=== PATIENT | male | born 1955 | race Caucasian/White ===

== ENCOUNTER 2018-11-11 02:59 | Inpatient (IN) | payer MEDICARE, OTHER ==
[2018-11-11] VITALS (56 sets, daily range): BP systolic 77–145; BP diastolic 43–100; PULSE 90–139; RESP 18–37; Ht 177.8 cm; Wt 60.5 kg
[~2018-11-11] VITALS: Ht 177.8 cm; Wt 60.5 kg
[2018-11-11] MEDS ORDERED: NORepinephrine 8MG/250 ML (PMX 250 ML ONE (03:30)
[2018-11-11] MEDS ORDERED: SOD CHLORIDE 0.9% 1,000 ML IV ONE ×2 (04:00→16:30)
[2018-11-11] MEDS ORDERED: LEVALBUTEROL (NEB) 0.63 MG/3 ML AMP HHN PRN (04:00)
[2018-11-11] MEDS: NORepinephrine 8MG/250 ML (PMX 250 ML IV SCH ×2 (04:17→12:09)
[2018-11-11] MEDS: INSULIN ASPART [NOVOLOG] 3 ML PEN SC SCH ×3 (05:54→18:00)
[2018-11-11] MEDS: HEPARIN 5,000 UNIT/1 ML VIAL SC SCH ×3 (05:59→20:19)
[2018-11-11] MEDS ORDERED: NA BICARBONATE 8.4% 50 ML SYG IV ONE ×3 (07:00→20:00)
[2018-11-11] MEDS ORDERED: LEVALBUTEROL (NEB) 0.63 MG/3 ML AMP HHN SCH (08:00)
--- NOTE | 2018-11-11 08:02 | HP ---
DATE OF ADMISSION: 11/11/2018 CHIEF COMPLAINT: Cardiac arrest. HISTORY OF PRESENT ILLNESS: This is a 63-year-old male with a past medical history of schizoaffectiv e disorder, history of COPD who was admitted initially to an outside hospital on 10/05/2018 after anaya ng found down. The patient was at a skilled nurse facility and was found unresponsive. He was hypot ensive with systolic pressures in the 60s. The patient was in respiratory failure. He was subsequen tly intubated and presented to an outside hospital where he had a complicated course. The patient wa s noted to have sepsis, urinary tract infection, fungemia. He was also noted to have acute GI bleedi ng which they felt to be secondary to gastroduodenal artery. The patient had 2 embolizations of the artery without improvement, eventually requiring exploratory laparotomy on 10/09/2018 with enterolys is to control duodenal ulcer bleeding and evacuation of hematoma and placement of a duodenostomy tube . The patient unfortunately was also unable to be weaned and was trached and PEG'd and was transferr ed to [facility]. While at [facility], patient was being followed by multiple consultants including GI, general surgery, pulmonary and Infectious Disease. The patient early this morning was noted to be found unresponsive. No pulse. Code blue was called. The patient was given 1 dose of e pinephrine and chest compressions with return of spontaneous circulation. The patient was then trans ferred to the intensive care unit at [facility]. Upon my evaluation of the patient at this time, he is unresponsive. There are no reports of any hemo ptysis, hematemesis or hematochezia. PAST MEDICAL HISTORY: History of schizoaffective disorder, history of COPD. PAST SURGICAL HISTORY: Status post exploratory laparotomy, status post tracheostomy, status post PEG , status post arterial embolization. FAMILY HISTORY: No family history of kidney disease. SOCIAL HISTORY: Lives previously in a fpc facility. REVIEW OF SYSTEMS: Unable to do adequate review of systems as the patient is altered. Pertinent pos itives stated in HPI, as obtained by reviewing medical records, speaking with the hospital staff, oth erwise negative. PHYSICAL EXAMINATION: VITAL SIGNS: Blood pressure 96/65, respirations 25, pulse 98, temperature 98.6. HEENT: Head is normocephalic. NECK: Shows trach. HEART: Regular rate. LUNGS: Show diminished breath sounds at the base. ABDOMEN: Soft. Positive duodenostomy tube noted. Positive mid abdominal wound noted. Positive CONRAD drain. EXTREMITIES: Negative for clubbing, cyanosis, no edema. DERMATOLOGIC: No rashes. MUSCULOSKELETAL: wounds. NEUROLOGIC: Limited exam as the patient is obtunded. MEDICATIONS: The patient's medications have been reviewed. LABORATORY DATA: Has been reviewed. ASSESSMENT AND PLAN: This is a 63-year-old male who presents with: 1. Status post cardiac arrest. Etiology is unclear, possibly cardiac. The patient is status post r eturn to spontaneous circulation. Plan at this point is to place a cardiology consult for evaluation . Check a 2-D echo, monitor serial troponins. Will monitor closely. 2. Shock, presumed septic, possible cardiac. The patient is currently on pressor support, IV fluids . Broad spectrum antibiotics. Will continue to monitor. Continue current treatment plan. Will al so check blood cultures, procalcitonin level, lactic acid level and monitor closely. 3. Ventilator dependent respiratory failure. Vent settings and ABG have been reviewed. Continue to monitor. Follow up with pulmonary. 4. Nonoliguric acute kidney injury on top of chronic kidney disease. Etiology of MADONNA is secondary t o acute tubular necrosis. The patient's baseline creatinine has been around 3 to 4 mg/dL. Renal function is currently at baseline. Will continue to monitor closely. 6. Metabolic acidosis. Etiology is secondary to acute kidney injury, chronic kidney disease. The p atmita's ABG was reviewed. Patient is status post4 amps of bicarb. Will continue to monitor. Check a lactic acid level. 7. Anemia. Monitor hemoglobin and hematocrit levels. 8. Leukocytosis. Etiology may be secondary to sepsis, recent cardiac arrest as stated above. Will continue broad spectrum antibiotics. Follow up infectious disease. Will check cultures blood, urine and monitor. 9. History of GI bleed from gastroduodenal artery. The patient is status post embolization x2, stat us post exploratory laparotomy with enterolysis to control duodenal ulcer bleed. The patient has a d uodenostomy tube. Will continue to monitor. Follow up with general surgery. 10. Mid incisional wound from recent surgery. Continue wound care. Follow up with general surgery for recommendations. 11. History of sepsis with fungemia, UTI. Will continue broad spectrum antibiotics. The patient is status post course of Diflucan. Monitor closely. 12. Acute encephalopathy on top of history of schizoaffective disorder, etiology may be toxic metabo lic, questionable anoxic injury. Monitor closely. Consider CT scan of the brain. Consider neurolog y evaluation. 13. History of chronic obstructive pulmonary disease. 14. Transaminitis, cholestasis. Etiology may be secondary to shock liver, TPN. Unclear if there is an obstructive phenomenon. The patient's CT scan of the abdomen and pelvis was most recently review ed. Will continue to monitor. Follow up with GI. 15. History of hypertension. 16. GI and deep venous thrombosis prophylaxis. Dictated By: PREM COHEN DO NR/NTS Conf#: [id number] DID#: [id number]
--- NOTE | 2018-11-11 08:06 | CONS ---
Assessment/Plan Assessment/Plan Hospital Course (Demo Recall) 1. Cardiopulmonary arrest: Appears to be most likely respiratory related 2. Shock probably septic 3. History of respiratory failure with tracheostomy vent dependent 4. Renal failure probably acute on chronic 5. Jaundice 6. History of GI bleed 7. Encephalopathy 8. Anemia 9. History of likely COPD 10. History of fungemia 11. Malnutrition and dysphagia 12. Severe metabolic acidosis Recommendation: Continue with supportive care including ventilatory support. Levophed to be continued and titrated as needed I will check the chest x-ray as well I will order an echocardiogram and EKG. Cardiac enzymes will be checked although unable to hold anticoagulants or even give him aspirin given his massive GI bleed Antibiotic management as per internal medicine and most likely ID consultations. GI prophylaxis/treatment as per GI biometrics consultant and internal medicine Continue with ICU care for now. . code statues is full code now Thank you for this referral. We will continue to follow along with you GHAZALA SNYDER MD [facility] Consultation Date/Type/Reason Admit Date/Time Nov 11, 2018 at 03:22 Date of Consultation: Nov 11, 2018 Type of Consult Cardiology Reason for Consultation cpa Requesting Provider: PREM COHEN DO Date/Time of Note DATE: 11/11/18 TIME: 07:56 Hx of Present Illness Interventional cardiology consultation note Chief complaint: Cardiopulmonary arrest Reason for consult: Cardiopulmonary arrest History of present illness: Thank you for this referral. History was obtained from review of the chart review of the ulcer discussion with staff and physicians. Patient himself is unable to provide any history to me. There is no family available This is an unfortunate 63-year-old gentleman multiple complicated medical history was transferred from facility in ICU from [place] last night. The best information I could obtain patient apparently has had a complicated course in lumbar low status post tracheostomy which has been weaning off and our results. Patient last night apparently became more bradycardic unresponsive respiratory failure stop breathing. CODE BLUE was called. Patient already has tracheostomy has been placed on vent has been transferred to ICU. Initially was completely unresponsive now he has some movement. He has been hypotensive as well and currently on Levophed drip. Allergies: No known drug allergies Medications were reviewed as per medical reconciliation sheet Family history: No history of early coronary artery disease Social history: He is an ex-smoker. Past medical history: History of schizoaffective disorder History of massive GI bleed. He was admitted on October 05, 2018 after he was found down and his custodial and hypotensive to [facility] and [facility]. He underwent gas throughout duodenal embolization at that time which was unsuccessful. Duodenal tube was placed as an Michael.. Old record he has had more than 50 unit of PRBC transfused already. Can also renal failure liver enzyme has been elevated since then has been jaundiced. Patient required to have tracheostomy done. Previous echo has shown normal LV systolic function but PA pressure was elevated at 47mmHg. He also has had fungemia infection as well. Review of system: Patient denies all others except for above-mentioned Past Medical History Medications Current Medications Norepinephrine 250 ml @ 1.875 mls/ hr TITRATE IV Last administered on 11/11/18at 04:17; Admin Dose 30 MLS/HR; Start 11/11/18 at 04:00 Cefepime HCl 50 ml @ 100 mls/hr DAILY IVPB ; Start 11/11/18 at 09:00 Famotidine (Pepcid Iv) 20 mg DAILY IV ; Start 11/11/18 at 09:00 Heparin Sodium (Porcine) (Heparin (5000 Units/1ml)) 5,000 unit Q8 SC Last administered on 11/11/18at 05:59; Admin Dose 5,000 UNIT; Start 11/11/18 at 06:00 Insulin Aspart (Novolog Insulin Pen) NOVOLOG *MILD* ALGORI... Q6 SC ; Start 11/11/18 at 06:00 Levalbuterol (Xopenex Neb) 0.63 mg Q6H RESP THERAPY PRN HHN sob; Start 11/11/18 at 04:00 Miconazole Nitrate (Miconazole 2% Cr) 1 applic BID TOP ; Start 11/11/18 at 09:00 Total Parenteral Nutrition 1,000 ml @ 0 mls/hr Q0M IV ; Start 11/11/18 at 03:38 Allergies: Coded Allergies: No Known Allergy (Unverified , 11/03/18) Exam/Review of Systems Vital Signs Vitals Vital Signs Date Temp Pulse Resp B/P (MAP) Pulse Ox O2 O2 Flow FiO2 Time Delivery Rate 11/11/18 98 24 96/65 (75) 100 05:45 11/11/18 30 05:30 11/11/18 Mechanical 05:00 Ventilator 11/11/18 97.2 03:30 Intake and Output 11/10/18 11/10/18 11/11/18 1414:59 22:59 06:59 IntakeIntake Total 227 ml BalanceBalance 227 ml Exam Exam General: Looking team gentleman status post tracheostomy on the vent HEENT: NC/AT. pupils are equal. NECK: Status post tracheostomy. no stridor. CV: RRR. systolic murmur; no gallop or rubs. PULM: no wheezing + rhonchi. GI: Status post surgery with [address]. Extremity: trace B/L LE edema. no clubbing. neuro: Opens his eyes and moves to painful stimuli. Does not able to answer my question though. Psych: calm rectal: deferred : normal male. Per review of the old chart abdominal CT done 11/06/2018 showed: Status post recent midline laparotomy. Postsurgical changes anterior wall body stomach. Question mass proximal body stomach. Feeding gastrostomy tube with tip in duodenum as above. Surgical drain tip in gallbladder fossa. No abscess or hematoma seen. Left renal cyst. Nonvisualization appendix. Bibasilar linear fibrosis versus plate-like atelectasis. Labs Result Diagram: 11/11/18 0414 11/11/18 0415 Results 24hrs Laboratory Tests Test 11/11/18 04:14 11/11/18 04:15 11/11/18 05:10 11/11/18 05:50 White Blood Count 32.0 #H Red Blood Count 2.71 L Hemoglobin 7.8 L Hematocrit 25.1 L Mean Corpuscular 92.6 Volume Mean Corpuscular 28.8 L Hemoglobin Mean Corpuscular 31.1 L Hemoglobin Concen t Red Cell 25.0 H Distribution Width Platelet Count 413 Mean Platelet 10.5 H Volume Immature 3.400 H Granulocytes % Neutrophils % 84.3 H Lymphocytes % 6.2 L Monocytes % 3.4 Eosinophils % 2.4 Basophils % 0.3 Nucleated Red 0.2 H Blood Cells % Immature 1.100 H Granulocytes # Neutrophils # 26.9 H Lymphocytes # 2.0 Monocytes # 1.1 H Eosinophils # 0.8 H Basophils # 0.1 Nucleated Red 0.1 H Blood Cells # Activated 45.3 H Partial Thrombopl ast Time Lactic Acid Level 2.0 Sodium Level 144 Potassium Level 4.3 Chloride Level 120 H Carbon Dioxide 14 L Level Anion Gap 10 Blood Urea 108 H Nitrogen Creatinine 3.68 H Est Glomerular 17 L Filtrat Rate mL/min Glucose Level 116 Calcium Level 10.6 H Phosphorus Level 5.5 H Magnesium Level 1.6 L Total Bilirubin 6.3 H Direct Bilirubin 5.20 H Indirect 1.1 Bilirubin Aspartate Amino 258 #H Transf (AST/SGOT) Alanine 197 H Aminotransferase (ALT/SGPT) Alkaline 216 H Phosphatase Total Protein 7.1 # Albumin 2.4 L Globulin 4.70 H Albumin/Globulin 0.51 Ratio Prealbumin 13.7 L Triglycerides 275 H Level Blood Gas Blood arterial Specimen Source Arterial Blood 11/11/2018 4:50:0 Date Drawn 0 AM Arterial Blood pH 7.268 *L (Temp corrected) Arterial Blood 30.7 L pCO2 (Temp correct) Arterial Blood 116.9 H pO2 (Temp corrected) Arterial Blood 13.7 L HCO3 Arterial Blood -12.1 L Base Excess Arterial Blood 98.0 Oxygen Saturation Chong Test ACCEPTAB Arterial Blood Left Radial Gas Puncture Site Arterial 0.3 Blood Carboxyhemo globin Arterial Blood 0.4 Methemoglobin Blood Gas A-a O2 60.9 H Differential Oxyhemoglobin 97.3 Percent Blood Gas 37.0 Temperature Blood Gas 20.0 Respiration Rate Blood Gas Actual 27 Respiration Rate Blood Gas VENT - AC Modality FiO2 30.0 Blood Gas Tidal 500.0 Volume Blood Gas Low 5.0 PEEP Setting Blood Gas H TA RN Critical Value Read Back Blood Gas Misael SRIVASTAVA DIRECTOR [employer]+ Notified Whom Blood Gas 11/11/2018 5:01:0 Notified Time 0 AM Bedside Glucose 129 Medications Medications Current Medications Norepinephrine 250 ml @ 1.875 mls/ hr TITRATE IV Last administered on 11/11/18at 04:17; Admin Dose 30 MLS/HR; Start 11/11/18 at 04:00 Cefepime HCl 50 ml @ 100 mls/hr DAILY IVPB ; Start 11/11/18 at 09:00 Famotidine (Pepcid Iv) 20 mg DAILY IV ; Start 11/11/18 at 09:00 Heparin Sodium (Porcine) (Heparin (5000 Units/1ml)) 5,000 unit Q8 SC Last administered on 11/11/18at 05:59; Admin Dose 5,000 UNIT; Start 11/11/18 at 06:00 Insulin Aspart (Novolog Insulin Pen) NOVOLOG *MILD* ALGORI... Q6 SC ; Start 11/11/18 at 06:00 Levalbuterol (Xopenex Neb) 0.63 mg Q6H RESP THERAPY PRN HHN sob; Start 11/11/18 at 04:00 Miconazole Nitrate (Miconazole 2% Cr) 1 applic BID TOP ; Start 11/11/18 at 09:00 Total Parenteral Nutrition 1,000 ml @ 0 mls/hr Q0M IV ; Start 11/11/18 at 03:38 GHAZALA SNYDER MD Nov 11, 2018 08:06
--- NOTE | 2018-11-11 08:55 | CONS ---
Assessment/Plan Assessment/Plan Assessment/Plan (Daily) Ventilator setting; assist control of 20, tidal volume 500, PEEP of 5, 30% FiO2. Patient is currently on Levophed 40 mics per minute. Chest x-ray is clear. Assessment and recommendations; 1. Patient admitted with respiratory failure status post CPR with severe sepsis. Possible sources could be early pneumonia versus abdominal infection. Patient exhibiting significant leukocytosis. 2. Possibly chronic renal insufficiency. 3. Metabolic acidosis likely related to cardiac arrest event 4. COPD. 5. History of schizoaffective disorder. 6. Elevated liver enzymes, possibly related to ongoing sepsis. 7. Anemia. 8. Likely underlying advanced dementia/encephalopathy. Continue current supportive care. Add vancomycin per pharmacy. Sodium bicarbonate replaced. Consider adding Cancidas. Continue TPN. Prognosis appears guarded. 35 minutes of critical care time was spent evaluating patient. Consultation Date/Type/Reason Admit Date/Time Nov 11, 2018 at 03:22 Date of Consultation: Nov 11, 2018 Type of Consult Pulmonary/critical care Patient is a 63-year-old male who was transferred to the hospital after he underwent cardiac arrest at [facility]. CPR was done with revival of vital signs. Patient apparently was maintained on T-piece but now is on invasive mechanical ventilation. By the time I saw him, patient is completely unresponsive and on ventilator. History is been obtained from medical records. Past medical history; 1. History of massive GI bleed status post 2 embolization procedures. 2. History of tracheostomy and PEG tube placement. 3. History of laparotomy with abdominal wound dehiscence. 4. Chronic renal insufficiency. 5. Chronic anemia. 6. COPD. 7. Schizoaffective disorder. Medications; reviewed. Patient is currently on Levophed 14 mics per minute. Other medications were reviewed as well. Allergies; none. Family history, social history, occupational history is unavailable. Review of system; unable to be obtained. General exam; elderly male, appears quite emaciated. On ventilator via tracheostomy. Noncommunicative. But awake. Currently in no distress. Date/Time of Note DATE: 11/11/18 TIME: 08:47 Past Medical History Medications Current Medications Norepinephrine 250 ml @ 1.875 mls/ hr TITRATE IV Last administered on 11/11/18at 04:17; Admin Dose 30 MLS/HR; Start 11/11/18 at 04:00 Cefepime HCl 50 ml @ 100 mls/hr DAILY IVPB ; Start 11/11/18 at 09:00 Famotidine (Pepcid Iv) 20 mg DAILY IV ; Start 11/11/18 at 09:00 Heparin Sodium (Porcine) (Heparin (5000 Units/1ml)) 5,000 unit Q8 SC Last administered on 11/11/18at 05:59; Admin Dose 5,000 UNIT; Start 11/11/18 at 06:00 Insulin Aspart (Novolog Insulin Pen) NOVOLOG *MILD* ALGORI... Q6 SC ; Start 11/11/18 at 06:00 Levalbuterol (Xopenex Neb) 0.63 mg Q6H RESP THERAPY PRN HHN sob; Start 11/11/18 at 04:00 Miconazole Nitrate (Miconazole 2% Cr) 1 applic BID TOP ; Start 11/11/18 at 09:00 Total Parenteral Nutrition 1,000 ml @ 0 mls/hr Q0M IV ; Start 11/11/18 at 03:38 Levalbuterol (Xopenex Hfa) 4 puff Q6H RESP THERAPY INH ; Start 11/11/18 at 09:00 Allergies: Coded Allergies: No Known Allergy (Unverified , 11/03/18) Exam/Review of Systems Exam Vitals Vital Signs Date Temp Pulse Resp B/P (MAP) Pulse Ox O2 O2 Flow FiO2 Time Delivery Rate 11/11/18 98 24 96/65 (75) 100 05:45 11/11/18 30 05:30 11/11/18 Mechanical 05:00 Ventilator 11/11/18 97.2 03:30 Intake and Output 11/10/18 11/10/18 11/11/18 1515:00 23:00 07:00 IntakeIntake Total 227 ml BalanceBalance 227 ml Exam H ENT exam; supple neck, no JVD. No lymphadenopathy. Midline trachea. No thyromegaly. Patient is edentulous. Tracheostomy in place. Insertion site is clean. Chest exam; diminished breath sounds bilaterally. S1-S2 audible, no murmurs. Regular rhythm. Abdomen exam; soft, scaphoid. Midline dressing in place. Midline abdominal wound is open. G-tube in place. Abdominal drain in place as well. Bowel sounds are absent. Extremity exam; no peripheral edema. FLOOR ATTENDANT exam; patient is unresponsive. Results Result Diagram: 11/11/18 0414 11/11/18 0415 Results 24hrs Laboratory Tests Test 11/11/18 04:14 11/11/18 04:15 11/11/18 05:10 11/11/18 05:50 White Blood Count 32.0 #H Red Blood Count 2.71 L Hemoglobin 7.8 L Hematocrit 25.1 L Mean Corpuscular 92.6 Volume Mean Corpuscular 28.8 L Hemoglobin Mean Corpuscular 31.1 L Hemoglobin Concen t Red Cell 25.0 H Distribution Width Platelet Count 413 Mean Platelet 10.5 H Volume Immature 3.400 H Granulocytes % Neutrophils % 84.3 H Lymphocytes % 6.2 L Monocytes % 3.4 Eosinophils % 2.4 Basophils % 0.3 Nucleated Red 0.2 H Blood Cells % Immature 1.100 H Granulocytes # Neutrophils # 26.9 H Lymphocytes # 2.0 Monocytes # 1.1 H Eosinophils # 0.8 H Basophils # 0.1 Nucleated Red 0.1 H Blood Cells # Activated 45.3 H Partial Thrombopl ast Time Lactic Acid Level 2.0 Sodium Level 144 Potassium Level 4.3 Chloride Level 120 H Carbon Dioxide 14 L Level Anion Gap 10 Blood Urea 108 H Nitrogen Creatinine 3.68 H Est Glomerular 17 L Filtrat Rate mL/min Glucose Level 116 Calcium Level 10.6 H Phosphorus Level 5.5 H Magnesium Level 1.6 L Total Bilirubin 6.3 H Direct Bilirubin 5.20 H Indirect 1.1 Bilirubin Aspartate Amino 258 #H Transf (AST/SGOT) Alanine 197 H Aminotransferase (ALT/SGPT) Alkaline 216 H Phosphatase Total Protein 7.1 # Albumin 2.4 L Globulin 4.70 H Albumin/Globulin 0.51 Ratio Prealbumin 13.7 L Triglycerides 275 H Level Blood Gas Blood arterial Specimen Source Arterial Blood 11/11/2018 4:50:0 Date Drawn 0 AM Arterial Blood pH 7.268 *L (Temp corrected) Arterial Blood 30.7 L pCO2 (Temp correct) Arterial Blood 116.9 H pO2 (Temp corrected) Arterial Blood 13.7 L HCO3 Arterial Blood -12.1 L Base Excess Arterial Blood 98.0 Oxygen Saturation Chong Test ACCEPTAB Arterial Blood Left Radial Gas Puncture Site Arterial 0.3 Blood Carboxyhemo globin Arterial Blood 0.4 Methemoglobin Blood Gas A-a O2 60.9 H Differential Oxyhemoglobin 97.3 Percent Blood Gas 37.0 Temperature Blood Gas 20.0 Respiration Rate Blood Gas Actual 27 Respiration Rate Blood Gas VENT - AC Modality FiO2 30.0 Blood Gas Tidal 500.0 Volume Blood Gas Low 5.0 PEEP Setting Blood Gas H TA RN Critical Value Read Back Blood Gas D ATIF SIGNAL SUPERVISOR+ Notified Whom Blood Gas 11/11/2018 5:01:0 Notified Time 0 AM Bedside Glucose 129 Test 11/11/18 07:15 Lactic Acid Level 1.5 Medications Medication Current Medications Norepinephrine 250 ml @ 1.875 mls/ hr TITRATE IV Last administered on 11/11/18at 04:17; Admin Dose 30 MLS/HR; Start 11/11/18 at 04:00 Cefepime HCl 50 ml @ 100 mls/hr DAILY IVPB ; Start 11/11/18 at 09:00 Famotidine (Pepcid Iv) 20 mg DAILY IV ; Start 11/11/18 at 09:00 Heparin Sodium (Porcine) (Heparin (5000 Units/1ml)) 5,000 unit Q8 SC Last administered on 11/11/18at 05:59; Admin Dose 5,000 UNIT; Start 11/11/18 at 06:00 Insulin Aspart (Novolog Insulin Pen) NOVOLOG *MILD* ALGORI... Q6 SC ; Start 11/11/18 at 06:00 Levalbuterol (Xopenex Neb) 0.63 mg Q6H RESP THERAPY PRN HHN sob; Start 11/11/18 at 04:00 Miconazole Nitrate (Miconazole 2% Cr) 1 applic BID TOP ; Start 11/11/18 at 09:00 Total Parenteral Nutrition 1,000 ml @ 0 mls/hr Q0M IV ; Start 11/11/18 at 03:38 Levalbuterol (Xopenex Hfa) 4 puff Q6H RESP THERAPY INH ; Start 11/11/18 at 09:00 BERENICE AREVALO Nov 11, 2018 08:54
[2018-11-11] MEDS ORDERED: VANCOMYCIN IV PER PHARMACY XX SCH (09:00)
[2018-11-11] MEDS ORDERED: FAMOTIDINE 20 MG INJ IV SCH (09:00)
[2018-11-11] MEDS: LEVALBUTEROL (HFA) 15 GM INHALER INH SCH ×3 (09:00→19:38)
[2018-11-11] MEDS: CEFEPIME 1GM/50 ML (PMX) 50 ML IVPB SCH (09:23)
[2018-11-11] MEDS: MICONAZOLE 2% 30 GM CR TOP SCH ×2 (09:24→20:09)
[2018-11-11] MEDS: BALSAM PERU/CASTOR OIL 60 GM TUBE TOP SCH ×2 (09:24→20:09)
[2018-11-11] MEDS ORDERED: DEXTROSE 50% 50 ML SYRINGE IV PRN ×2 (09:30)
[2018-11-11] MEDS ORDERED: GLUCOSE GEL 15 GRAM TUBE PO PRN ×2 (09:30)
[2018-11-11] MEDS ORDERED: GLUCAGON 1 MG INJ IM PRN (09:30)
[2018-11-11] MEDS ORDERED: GLUCOSE GEL 15 GRAM TUBE BUCCAL PRN (09:30)
--- NOTE | 2018-11-11 09:35 | CONS ---
Assessment/Plan Assessment/Plan Hospital Course (Demo Recall) 63 yo male 1. Abnormal LFTs, multifactorial -sepsis, ischemic liver, cholastasis 2. Acute on chronic anemia -will monitor 3. S/P cardiac arrest 4. VDRF 5. Leukocytosis -sepsis, cardiac arrest 6. H/O GI bleed secondary gastroduodenal ulcer which was emoblized, enterolysis and duodenostomy tube. 7. Acute on chronic kidney disease Plan: Keep SBP greater than 100 [facility] and for active GI bleeding [facility] LFTs PPI BID Continue TPN ICU supportive care Pt examined and plan of care d/w Dr. Thompson Consultation Date/Type/Reason Admit Date/Time Nov 11, 2018 at 03:22 Date/Time of Note DATE: 11/11/18 TIME: 09:10 Hx of Present Illness 63 yo male with pmh of COPD, Schizoaffective disorder followed by Dr Thompson in [facility]. Pt was initially admitted 10/05/18 after being found unresponsive at a SNF was found to in resp failure and hypotensive was intubated. Found to septic with a UTI and fungemia, GI bleed secondary to gastroduodenal artery requiring to embolizations and enterolysis of duodenal a rtery with duodenostomy. Eventually patient was trached and PEGd and transferred to [facility]. While at [facility] pt coded, CPR initiated and ROSC, transferred to ICU at [facility]. Pt has had chronically elevated LFTs and jaundiced. HH 7.8/25.1. WBC 32. Abnormal LFTs. T bili 6.8. Triglycerides 300. On le vophed gtt Past Medical History Medications Current Medications Norepinephrine 250 ml @ 1.875 mls/ hr TITRATE IV Last administered on 11/11/18at 04:17; Admin Dose 30 MLS/HR; Start 11/11/18 at 04:00 Cefepime HCl 50 ml @ 100 mls/hr DAILY IVPB ; Start 11/11/18 at 09:00 Famotidine (Pepcid Iv) 20 mg DAILY IV ; Start 11/11/18 at 09:00 Heparin Sodium (Porcine) (Heparin (5000 Units/1ml)) 5,000 unit Q8 SC Last administered on 11/11/18at 05:59; Admin Dose 5,000 UNIT; Start 11/11/18 at 06:00 Insulin Aspart (Novolog Insulin Pen) NOVOLOG *MILD* ALGORI... Q6 SC ; Start 11/11/18 at 06:00 Levalbuterol (Xopenex Neb) 0.63 mg Q6H RESP THERAPY PRN HHN sob; Start 11/11/18 at 04:00 Miconazole Nitrate (Miconazole 2% Cr) 1 applic BID TOP ; Start 11/11/18 at 09:00 Total Parenteral Nutrition 1,000 ml @ 0 mls/hr Q0M IV ; Start 11/11/18 at 03:38 Levalbuterol (Xopenex Hfa) 4 puff Q6H RESP THERAPY INH ; Start 11/11/18 at 09:00 Vancomycin HCl (Vanco Iv Per Pharmacy) VANCOMYCIN PER PHARMACY PER PROTOCOL XX ; Start 11/11/18 at 09:00; Status UNV Caspofungin 50 mg/ Sodium Chloride 250 ml @ 250 mls/hr Q24H IVPB ; Start 11/11/18 at 09:00; Status UNV Allergies: Coded Allergies: No Known Allergy (Unverified , 11/03/18) Exam/Review of Systems Exam Vitals Vital Signs Date Temp Pulse Resp B/P (MAP) Pulse Ox O2 O2 Flow FiO2 Time Delivery Rate 11/11/18 103 08:00 11/11/18 24 96/65 (75) 100 05:45 11/11/18 30 05:30 11/11/18 Mechanical 05:00 Ventilator 11/11/18 97.2 03:30 Intake and Output 11/10/18 11/10/18 11/11/18 1515:00 23:00 07:00 IntakeIntake Total 227 ml BalanceBalance 227 ml Constitutional: non-verbal Psych: no complaints Head: normocephalic Eyes: PERRL, icteric Respiratory: clear to auscultation Cardiovascular: regular rate and rhythm Gastrointestinal: soft, other (no bowel sounds, open wound mid abdomen packed with drainage gauze, rt tube draing yellow clear output with bloody sediment, Left tube draining purulent drainage with black sediment. ) Neurological: unresponsive, other (eyes open, does not track) Skin: other (jaundice) Results Result Diagram: 11/11/18 0414 11/11/18 0715 Results 24hrs Laboratory Tests Test 11/11/18 04:14 11/11/18 04:15 11/11/18 05:10 11/11/18 05:50 White Blood Count 32.0 #H Red Blood Count 2.71 L Hemoglobin 7.8 L Hematocrit 25.1 L Mean Corpuscular 92.6 Volume Mean Corpuscular 28.8 L Hemoglobin Mean Corpuscular 31.1 L Hemoglobin Concen t Red Cell 25.0 H Distribution Width Platelet Count 413 Mean Platelet 10.5 H Volume Immature 3.400 H Granulocytes % Neutrophils % 84.3 H Lymphocytes % 6.2 L Monocytes % 3.4 Eosinophils % 2.4 Basophils % 0.3 Nucleated Red 0.2 H Blood Cells % Immature 1.100 H Granulocytes # Neutrophils # 26.9 H Lymphocytes # 2.0 Monocytes # 1.1 H Eosinophils # 0.8 H Basophils # 0.1 Nucleated Red 0.1 H Blood Cells # Activated 45.3 H Partial Thrombopl ast Time Lactic Acid Level 2.0 Sodium Level 144 Potassium Level 4.3 Chloride Level 120 H Carbon Dioxide 14 L Level Anion Gap 10 Blood Urea 108 H Nitrogen Creatinine 3.68 H Est Glomerular 17 L Filtrat Rate mL/min Glucose Level 116 Calcium Level 10.6 H Phosphorus Level 5.5 H Magnesium Level 1.6 L Total Bilirubin 6.3 H Direct Bilirubin 5.20 H Indirect 1.1 Bilirubin Aspartate Amino 258 #H Transf (AST/SGOT) Alanine 197 H Aminotransferase (ALT/SGPT) Alkaline 216 H Phosphatase Total Protein 7.1 # Albumin 2.4 L Globulin 4.70 H Albumin/Globulin 0.51 Ratio Prealbumin 13.7 L Triglycerides 275 H Level Blood Gas Blood arterial Specimen Source Arterial Blood 11/11/2018 4:50:0 Date Drawn 0 AM Arterial Blood pH 7.268 *L (Temp corrected) Arterial Blood 30.7 L pCO2 (Temp correct) Arterial Blood 116.9 H pO2 (Temp corrected) Arterial Blood 13.7 L HCO3 Arterial Blood -12.1 L Base Excess Arterial Blood 98.0 Oxygen Saturation Chong Test ACCEPTAB Arterial Blood Left Radial Gas Puncture Site Arterial 0.3 Blood Carboxyhemo globin Arterial Blood 0.4 Methemoglobin Blood Gas A-a O2 60.9 H Differential Oxyhemoglobin 97.3 Percent Blood Gas 37.0 Temperature Blood Gas 20.0 Respiration Rate Blood Gas Actual 27 Respiration Rate Blood Gas VENT - AC Modality FiO2 30.0 Blood Gas Tidal 500.0 Volume Blood Gas Low 5.0 PEEP Setting Blood Gas H TA RN Critical Value Read Back Blood Gas D [employer]+ Notified Whom Blood Gas 11/11/2018 5:01:0 Notified Time 0 AM Bedside Glucose 129 Test 11/11/18 07:15 Sodium Level 143 Potassium Level 4.0 Chloride Level 120 H Carbon Dioxide 11 L Level Anion Gap 12 Blood Urea 109 H Nitrogen Creatinine 3.85 H Est Glomerular 16 L Filtrat Rate mL/min Glucose Level 143 Lactic Acid Level 1.5 Calcium Level 10.8 H Phosphorus Level 5.1 H Magnesium Level 1.6 L Total Bilirubin 6.8 H Direct Bilirubin 5.60 H Indirect 1.2 H Bilirubin Aspartate Amino 329 H Transf (AST/SGOT) Alanine 247 H Aminotransferase (ALT/SGPT) Alkaline 245 H Phosphatase Total Protein 7.0 Albumin 2.3 L Globulin 4.70 H Albumin/Globulin 0.48 Ratio Prealbumin Pending Triglycerides 300 H Level Medications Medication Current Medications Norepinephrine 250 ml @ 1.875 mls/ hr TITRATE IV Last administered on 11/11/18at 04:17; Admin Dose 30 MLS/HR; Start 11/11/18 at 04:00 Cefepime HCl 50 ml @ 100 mls/hr DAILY IVPB ; Start 11/11/18 at 09:00 Famotidine (Pepcid Iv) 20 mg DAILY IV ; Start 11/11/18 at 09:00 Heparin Sodium (Porcine) (Heparin (5000 Units/1ml)) 5,000 unit Q8 SC Last administered on 11/11/18at 05:59; Admin Dose 5,000 UNIT; Start 11/11/18 at 06:00 Insulin Aspart (Novolog Insulin Pen) NOVOLOG *MILD* ALGORI... Q6 SC ; Start 11/11/18 at 06:00 Levalbuterol (Xopenex Neb) 0.63 mg Q6H RESP THERAPY PRN HHN sob; Start 11/11/18 at 04:00 Miconazole Nitrate (Miconazole 2% Cr) 1 applic BID TOP ; Start 11/11/18 at 09:00 Total Parenteral Nutrition 1,000 ml @ 0 mls/hr Q0M IV ; Start 11/11/18 at 03:38 Levalbuterol (Xopenex Hfa) 4 puff Q6H RESP THERAPY INH ; Start 11/11/18 at 09:00 Vancomycin HCl (Vanco Iv Per Pharmacy) VANCOMYCIN PER PHARMACY PER PROTOCOL XX ; Start 11/11/18 at 09:00; Status UNV Caspofungin 50 mg/ Sodium Chloride 250 ml @ 250 mls/hr Q24H IVPB ; Start 11/11/18 at 09:00; Status UNV RYLAND ASH Nov 11, 2018 09:32
[2018-11-11] MEDS: FAMOTIDINE 20 MG INJ IV SCH ×2 (10:00→20:13)
--- NOTE | 2018-11-11 10:02 | RADRPT ---
Echocardiogram Report Patient Name: MAGDIEL GARCIA RPatient ID: [id number] : 1955 (63y 3m)Study Date: 11/11/2018 8:23:46 AM Gender: MAccession #: [id number] Tech: Bashir Puentes ADITYA Location: 105 Ref.Physician: GHAZALA MELGAR Height(Cm): BSA: Weight(Kg): Quality: AdequateOrder Physician: GHAZALA MELGAR Account #: Procedures: Echocardiographic Report: Transthoracic echocardiogram with complete 2D, M-Mode, and doppler examination. Indications: CPA. Measurements: 2D/M Mode Doppler Measurement Value Normal Range Measurement Value Normal Range LVIDd 2D 3.8 [ 4.2 - 5.8 ] cm AV Peak Keenan 1.5 [ 100.0 - 170.0 ] cm/sec LVIDs 2D 1.7 [ 2.5 - 4.0 ] cm AV Peak PG 9.0 [ 2.0 - 9.0 ] mmHg LVPWd 2D 1.1 [ 0.6 - 1.0 ] cm LVOT Peak Keenan 1.3 [ 70.0 - 110.0 ] cm/sec IVSd 2D 1.0 [ 0.6 - 1.0 ] cm LVOT Peak PG 7.0 [ 2.0 - 6.0 ] mmHg AoR Diam 2D 3.3 [ 2.6 - 3.4 ] cm Lat E` Keenan 0.1 [ 10.0 - 15.0 ] cm/sec EDV 2D 60.8 [ 62.0 - 150.0 ] ml ESV 2D 8.0 [ 21.0 - 61.0 ] ml EF 2D 86.8 [ 52.0 - 72.0 ] percent LA Dimen 2D 2.5 [ 3.0 - 4.0 ] cm Findings: Left Ventricle: Normal left ventricular systolic function. Normal left ventricular cavity size. Mild concentric left ventricular hypertrophy. Ejection fraction is visually estimated at 65 %. Abnormal Diastolic Function. Right Ventricle: Normal right ventricular size. Normal right ventricular systolic function. Left Atrium: The left atrium is normal in size. Right Atrium: The right atrium is normal in size. Mitral Valve: Normal appearance and function of the mitral valve with trace physiologic regurgitation. Aortic Valve: Normal appearance of the aortic valve. No significant aortic stenosis or insufficiency. Tricuspid Valve: Normal appearance and function of the tricuspid valve with trace physiologic regurgitation. Normal right ventricular systolic pressure. Pulmonic Valve: Pulmonic valve not well visualized. Pericardium: Normal pericardium with no significant pericardial effusion. Aorta: Normal aortic root. IVC: Inferior vena cava without respiratory collapse, however, patient on ventilator. Conclusions: Normal left ventricular systolic function. Normal left ventricular cavity size. Mild concentric left ventricular hypertrophy. Ejection fraction is visually estimated at 65 %. Abnormal Diastolic Function. Normal appearance and function of the mitral valve with trace physiologic regurgitation. Normal appearance of the aortic valve. No significant aortic stenosis or insufficiency. Normal appearance and function of the tricuspid valve with trace physiologic regurgitation. Normal right ventricular systolic pressure. Inferior vena cava without respiratory collapse, however, patient on ventilator. Electronically Signed By: Ghazala Melgar 2018-11-11 10:02:36 PDT
[2018-11-11] MEDS ORDERED: CASPOFUNGIN 70 MG in NS 250 ML IVPB ONE (10:30)
[2018-11-11] MEDS ORDERED: VANCOMYCIN HCL 1.25 GM in SOD CHLORIDE 0.9% 250 ML IVPB ONE (11:00)
[2018-11-11] MEDS: TPN 1,000 ML IV SCH ×2 (11:31→20:18)
--- NOTE | 2018-11-11 12:22 | CONS ---
DATE OF ADMISSION: 11/11/2018 DATE OF CONSULTATION: 11/11/2018 TYPE OF CONSULTATION: Infectious Disease. REASON FOR CONSULTATION: Antibiotic management. HISTORY OF PRESENT ILLNESS: The patient is a 63-year-old male with numerous problems who was transfe rred from [facility] to the ICU with cardiac arrest. His past problems include: 1. History of schizoaffective disorder. 2. History of chronic obstructive pulmonary disease. He was admitted initially to the hospital 10/05/2018 after being found down. He was at a [facility] facility, was hypotensive, in respiratory failure, he was intubated. He was noted to have sepsi s, urinary tract infection and fungemia at an outside hospital. He also had an acute GI bleed, which they felt was secondary to the gastroduodenal artery. The patient had 2 embolizations of the artery without improvement. He eventually required exploratory laparotomy on 10/09/2018 with enterolysis t o control duodenal ulcer bleeding and evacuation of a hematoma, as well as placement of a duodenostom y tube. The patient eventually was trached and needed a G-tube placed, and was transferred to [facility]. The patient was followed by GI, general surgery, pulmonary and infectious disea se. Early this morning, he was found unresponsive. Code blue was called. He was given a dose of ep inephrine, chest compression with return of spontaneous circulation and transferred to the intensive care unit. PAST MEDICAL HISTORY: As outlined. PAST SURGICAL HISTORY: Status post-exploratory laparotomy, status post tracheostomy, status post G-t ube placement, status post arterial embolization. FAMILY HISTORY: Noncontributory. SOCIAL HISTORY: Lives at a nursing home facility. REVIEW OF SYSTEMS: Noncontributory. PHYSICAL EXAMINATION: GENERAL: The patient has a tracheostomy and a G-tube. VITAL SIGNS: His blood pressure is about 96/65, respirations 25. He is afebrile, pulse 98. SKIN: Without generalized rash. HEENT: Within normal limits. NECK: Tracheostomy. CHEST: Decreased breath sounds at the bases. HEART: Without murmur or gallop. ABDOMEN: Soft. Duodenostomy tube is present. He has a CONRAD drain, a mid-abdominal wound is noted. EXTREMITIES: Without cyanosis, clubbing, or edema. RECTAL AND GENITAL: Deferred. NEUROLOGIC: The patient is obtunded. IMPRESSION AND PLAN: 1. The patient is in shock, possibly septic shock, possible cardiac, has ventilated dependent respir atory failure. He is on caspofungin, vancomycin and cefepime. Chest x-ray shows prominent bilateral interstitial markings which may represent pulmonary vascular congestion or infiltrate. The patient was seen by Dr. Barrera in pulmonary consultation. He has significant leukocytosis, placed on____. Hi s white count is 32,000, H and H 7.8 and 25.1, platelet count 413,000. BUN and creatinine are 109/3. 85. The patient was seen by Dr. Thompson in GI. He currently has abnormal liver function tests as wel l as markedly abnormal elevated white count of 32,000 with 84% neutrophils. We will continue him on vancomycin, cefepime and caspofungin, norepinephrine and observe. I will dictate my findings to Dr. Cohen and to the aforementioned consultants. Dictated By: ANGELA BENNETT MD, JD/ANTHONY Conf#: [id number] DID#: [id number] CC: PREM COHEN DO;*EndCC*
--- NOTE | 2018-11-11 12:36 | CONS ---
Assessment/Plan Assessment/Plan Hospital Course (Demo Recall) 1. Cardiac arrest status post resuscitation, shock -Supportive -Pressor support as needed -IV fluids -Antibiotics -Pancultures -Cardiology consult 2. Recent history of bleeding duodenal ulcer, status post exploratory laparotomy and duodenostomy -Obtain records from outside hospital -Maintain drains -Culture CONRAD drainage -Local wound care 3. Hyperbilirubinemia, transaminitis: 2/2 shock liver versus obstruction versus other -GI follow-up 4. Respiratory failure currently on ventilator, pulmonary vascular congestions or infiltrates -Pulmonary toilet -Vent management -Pulmonary consult 5.MADONNA: -Limit nephrotoxic meds -Renally dose meds -Per renal 6. Hypochromic anemia: -Monitor and transfuse as needed 7. Metabolic acidosis -Supportive 8. Leukocytosis -As above 9. Dysphagia status post duodenostomy tube -Hold enteral feedings -TPN Thank you. Patient seen and examined in collaboration with Dr. Sunny Queen. Consultation Date/Type/Reason Admit Date/Time Nov 11, 2018 at 03:22 Date of Consultation: Nov 11, 2018 Type of Consult Surgical Reason for Consultation Abdominal wounds, drains Requesting Provider: PREM COHEN DO Date/Time of Note DATE: 11/11/18 TIME: 12:01 Hx of Present Illness Filemon Cruz is a 63-year-old man with extensive past medical history who was recently at [facility] for recuperation. He recently had a very complicated course at [facility] where he was managed for GI bleeding as well as sepsis. Reportedly, he was found to have a bleeding duodenal ulcer with attempted IR embolization which was unsuccessful. He was ultimately taken to surgery and appears to have had extensive surgery with a resulting duodenostomy tube placement. His medical course included renal failure, shock, respiratory failure, tracheostomy placement, PEG placement. He was transferred to [facility] for further recuperation. Unfortunately this morning he experienced cardiac arrest and was eventually revived. He is currently in ICU care on ventilator as well as on pressor support. There have been no recent reports of fevers, labored breathing, congested cough, vomiting, diarrhea, seizure, rash prior to event. General surgery was asked to follow. 12 point review of systems was reviewed and is negative except for as stated in HPI Past Medical History Schizoaffective disorder COPD Bleeding duodenal ulcer, possible perforation Sepsis Shock Jaundice Icterus Respiratory failure, status post trach MADONNA Dysphagia status post PEG placement Abdominal wound Electrolyte abnormalities Anemia Transaminitis Hyperbilirubinemia Cholestasis Exploratory laparotomy Duodenal tube placement Medications Current Medications Norepinephrine 250 ml @ 1.875 mls/ hr TITRATE IV Last administered on 9at 04:17; Admin Dose 30 MLS/HR; Start 11/11/18 at 04:00 Cefepime HCl 50 ml @ 100 mls/hr DAILY IVPB Last administered on 11/11/18at 09:23; Admin Dose 100 MLS/HR; Start 11/11/18 at 09:00 Heparin Sodium (Porcine) (Heparin (5000 Units/1ml)) 5,000 unit Q8 SC Last administered on 11/11/18at 05:59; Admin Dose 5,000 UNIT; Start 11/11/18 at 06:00 Insulin Aspart (Novolog Insulin Pen) NOVOLOG *MILD* ALGORI... Q6 SC ; Start 11/11/18 at 06:00 Levalbuterol (Xopenex Neb) 0.63 mg Q6H RESP THERAPY PRN HHN sob; Start 11/11/18 at 04:00 Miconazole Nitrate (Miconazole 2% Cr) 1 applic BID TOP Last administered on 11/11/18at 09:24; Admin Dose 1 APPLIC; Start 11/11/18 at 09:00 Total Parenteral Nutrition 1,000 ml @ 60 mls/hr [id number] IV Last administered on 11/11/18at 11:31; Admin Dose 60 MLS/HR; Start 11/11/18 at 03:38; Stop 11/11/18 at 23:59 Levalbuterol (Xopenex Hfa) 4 puff Q6H RESP THERAPY INH ; Start 11/11/18 at 09:00 Vancomycin HCl (Vanco Iv Per Pharmacy) VANCOMYCIN PER PHARMACY PER PROTOCOL XX ; Start 11/11/18 at 09:00 Caspofungin 35 mg/ Sodium Chloride 250 ml @ 250 mls/hr Q24H IVPB ; Start 11/01 06/22 at 10:30 Miscellaneous Information 1 ea NOTE XX ; Start 11/11/18 at 09:30 Glucose (Glutose) 15 gm Q15M PRN PO DECREASED GLUCOSE; Start 11/11/18 at 09:30 Glucose (Glutose) 22.5 gm Q15M PRN PO DECREASED GLUCOSE; Start 11/11/18 at 09:30 Dextrose (D50w Syringe) 25 ml Q15M PRN IV DECREASED GLUCOSE; Start 11/11/18 at 09:30 Dextrose (D50w Syringe) 50 ml Q15M PRN IV DECREASED GLUCOSE; Start 11/11/18 at 09:30 Glucagon (Glucagen) 1 mg Q15M PRN IM DECREASED GLUCOSE; Start 11/11/18 at 09:30 Glucose (Glutose) 15 gm Q15M PRN BUCCAL DECREASED GLUCOSE; Start 11/11/18 at 09:30 Vancomycin HCl 1.25 gm/Sodium Chloride 250 ml @ 83.333 mls/ hr ONCE ONCE IVPB Last administered on 11/11/18at 11:32; Admin Dose 83.333 MLS/HR; Start 11/11/18 at 11:00; Stop 11/11/18 at 13:59 Famotidine (Pepcid Iv) 20 mg BID IV Last administered on 11/11/18at 10:00; Admin Dose 20 MG; Start 11/11/18 at 10:00 Total Parenteral Nutrition 1,000 ml @ 40 mls/hr Q24H IV ; Start 11/12/18 at 00:00 Allergies: Coded Allergies: No Known Allergy (Unverified , 11/03/18) Past Surgical History As above Family History Significant Family History: no pertinent family hx Exam/Review of Systems Exam Vitals Vital Signs Date Temp Pulse Resp B/P (MAP) Pulse Ox O2 O2 Flow FiO2 Time Delivery Rate 11/11/18 110 28 116/74 100 Trach 10:00 (88) Collar 11/11/18 97.6 08:00 11/11/18 30 05:30 Intake and Output 11/10/18 11/10/18 11/11/18 1515:00 23:00 07:00 IntakeIntake Total 227 ml BalanceBalance 227 ml Constitutional: alert, other (Withdraws from pain); No oriented Psych: confusion Head: normocephalic, atraumatic Eyes: nl conjunctiva, nl lids, icteric ENMT: nl external ears & nose, nl lips & teeth, nl nasal mucosa & septum Neck: supple, non-tender; No jvd Respiratory: normal air movement; No congested cough Cardiovascular: regular rate and rhythm, nl pulses Gastrointestinal: soft, tender, other (Open midline incision with slough; CONRAD with purulent drainage; duodenostomy tube); No distended Genitourinary - Male: nl penis, nl scrotum Musculoskeletal: nl extremities to inspection Extremities: normal pulses; No edema Neurological: No nl mental status, No nl speech, No nl strength Skin: No rash or lesions Lymph: nl lymph nodes Results Result Diagram: 11/11/18 0414 11/11/18 0715 Results 24hrs Laboratory Tests Test 11/11/18 04:14 11/11/18 04:15 11/11/18 05:10 11/11/18 05:50 White Blood Count 32.0 #H Red Blood Count 2.71 L Hemoglobin 7.8 L Hematocrit 25.1 L Mean Corpuscular 92.6 Volume Mean Corpuscular 28.8 L Hemoglobin Mean Corpuscular 31.1 L Hemoglobin Concen t Red Cell 25.0 H Distribution Width Platelet Count 413 Mean Platelet 10.5 H Volume Immature 3.400 H Granulocytes % Neutrophils % 84.3 H Lymphocytes % 6.2 L Monocytes % 3.4 Eosinophils % 2.4 Basophils % 0.3 Nucleated Red 0.2 H Blood Cells % Immature 1.100 H Granulocytes # Neutrophils # 26.9 H Lymphocytes # 2.0 Monocytes # 1.1 H Eosinophils # 0.8 H Basophils # 0.1 Nucleated Red 0.1 H Blood Cells # Activated 45.3 H Partial Thrombopl ast Time Lactic Acid Level 2.0 Sodium Level 144 Potassium Level 4.3 Chloride Level 120 H Carbon Dioxide 14 L Level Anion Gap 10 Blood Urea 108 H Nitrogen Creatinine 3.68 H Est Glomerular 17 L Filtrat Rate mL/min Glucose Level 116 Calcium Level 10.6 H Phosphorus Level 5.5 H Magnesium Level 1.6 L Total Bilirubin 6.3 H Direct Bilirubin 5.20 H Indirect 1.1 Bilirubin Aspartate Amino 258 #H Transf (AST/SGOT) Alanine 197 H Aminotransferase (ALT/SGPT) Alkaline 216 H Phosphatase Total Protein 7.1 # Albumin 2.4 L Globulin 4.70 H Albumin/Globulin 0.51 Ratio Prealbumin 13.7 L Triglycerides 275 H Level Blood Gas Blood arterial Specimen Source Arterial Blood 11/11/2018 4:50:0 Date Drawn 0 AM Arterial Blood pH 7.268 *L (Temp corrected) Arterial Blood 30.7 L pCO2 (Temp correct) Arterial Blood 116.9 H pO2 (Temp corrected) Arterial Blood 13.7 L HCO3 Arterial Blood -12.1 L Base Excess Arterial Blood 98.0 Oxygen Saturation Chong Test ACCEPTAB Arterial Blood Left Radial Gas Puncture Site Arterial 0.3 Blood Carboxyhemo globin Arterial Blood 0.4 Methemoglobin Blood Gas A-a O2 60.9 H Differential Oxyhemoglobin 97.3 Percent Blood Gas 37.0 Temperature Blood Gas 20.0 Respiration Rate Blood Gas Actual 27 Respiration Rate Blood Gas VENT - AC Modality FiO2 30.0 Blood Gas Tidal 500.0 Volume Blood Gas Low 5.0 PEEP Setting Blood Gas H TA RN Critical Value Read Back Blood Gas D ATIF EXERCISE INSTRUCT+ Notified Whom Blood Gas 11/11/2018 5:01:0 Notified Time 0 AM Bedside Glucose 129 Test 11/11/18 07:15 Sodium Level 143 Potassium Level 4.0 Chloride Level 120 H Carbon Dioxide 11 L Level Anion Gap 12 Blood Urea 109 H Nitrogen Creatinine 3.85 H Est Glomerular 16 L Filtrat Rate mL/min Glucose Level 143 Lactic Acid Level 1.5 Calcium Level 10.8 H Phosphorus Level 5.1 H Magnesium Level 1.6 L Total Bilirubin 6.8 H Direct Bilirubin 5.60 H Indirect 1.2 H Bilirubin Aspartate Amino 329 H Transf (AST/SGOT) Alanine 247 H Aminotransferase (ALT/SGPT) Alkaline 245 H Phosphatase Creatine Kinase 36 Creatine Kinase 11.0 Index Creatinine Kinase 3.96 H MB (Mass) Troponin I < 0.012 Total Protein 7.0 Albumin 2.3 L Globulin 4.70 H Albumin/Globulin 0.48 Ratio Prealbumin 14.6 L Triglycerides 300 H Level Procalcitonin 5.20 H Medications Medication Current Medications Norepinephrine 250 ml @ 1.875 mls/ hr TITRATE IV Last administered on 11/11/18at 04:17; Admin Dose 30 MLS/HR; Start 11/11/18 at 04:00 Cefepime HCl 50 ml @ 100 mls/hr DAILY IVPB Last administered on 11/11/18at 09:23; Admin Dose 100 MLS/HR; Start 11/11/18 at 09:00 Heparin Sodium (Porcine) (Heparin (5000 Units/1ml)) 5,000 unit Q8 SC Last administered on 11/11/18at 05:59; Admin Dose 5,000 UNIT; Start 11/11/18 at 06:00 Insulin Aspart (Novolog Insulin Pen) NOVOLOG *MILD* ALGORI... Q6 SC ; Start 11/11/18 at 06:00 Levalbuterol (Xopenex Neb) 0.63 mg Q6H RESP THERAPY PRN HHN sob; Start 11/11/18 at 04:00 Miconazole Nitrate (Miconazole 2% Cr) 1 applic BID TOP Last administered on 11/11/18at 09:24; Admin Dose 1 APPLIC; Start 11/11/18 at 09:00 Total Parenteral Nutrition 1,000 ml @ 60 mls/hr [id number] IV Last administered on 11/11/18at 11:31; Admin Dose 60 MLS/HR; Start 11/11/18 at 03:38; Stop 11/11/18 at 23:59 Levalbuterol (Xopenex Hfa) 4 puff Q6H RESP THERAPY INH ; Start 11/11/18 at 09:00 Vancomycin HCl (Vanco Iv Per Pharmacy) VANCOMYCIN PER PHARMACY PER PROTOCOL XX ; Start 11/11/18 at 09:00 Caspofungin 35 mg/ Sodium Chloride 250 ml @ 250 mls/hr Q24H IVPB ; Start 11/12/18 at 10:30 Miscellaneous Information 1 ea NOTE XX ; Start 11/11/18 at 09:30 Glucose (Glutose) 15 gm Q15M PRN PO DECREASED GLUCOSE; Start 11/11/18 at 09:30 Glucose (Glutose) 22.5 gm Q15M PRN PO DECREASED GLUCOSE; Start 11/11/18 at 09:30 Dextrose (D50w Syringe) 25 ml Q15M PRN IV DECREASED GLUCOSE; Start 11/11/18 at 09:30 Dextrose (D50w Syringe) 50 ml Q15M PRN IV DECREASED GLUCOSE; Start 11/11/18 at 09:30 Glucagon (Glucagen) 1 mg Q15M PRN IM DECREASED GLUCOSE; Start 11/11/18 at 09:30 Glucose (Glutose) 15 gm Q15M PRN BUCCAL DECREASED GLUCOSE; Start 11/11/18 at 09:30 Vancomycin HCl 1.25 gm/Sodium Chloride 250 ml @ 83.333 mls/ hr ONCE ONCE IVPB Last administered on 11/11/18at 11:32; Admin Dose 83.333 MLS/HR; Start 11/11/18 at 11:00; Stop 11/11/18 at 13:59 Famotidine (Pepcid Iv) 20 mg BID IV Last administered on 11/11/18at 10:00; Admin Dose 20 MG; Start 11/11/18 at 10:00 Total Parenteral Nutrition 1,000 ml @ 40 mls/hr Q24H IV ; Start 11/12/18 at 00:00 PIPO SRIVASTAVA NP Nov 11, 2018 12:16
[2018-11-11] MEDS ORDERED: SOD CHLORIDE 0.9% 1,000 ML IV SCH (16:30)
[2018-11-11] MEDS ORDERED: VASOPRESSIN 60 UNIT in DEXTROSE 5% 57 ML IV SCH (16:30)
[2018-11-11] MEDS ORDERED: morphine 2 MG INJ IV PRN (16:30)
[2018-11-11] MEDS ORDERED: DIPHENHYDRAMINE 50 MG INJ IV ONE (16:30)
[2018-11-11] MEDS: PHENYLephrine 40 MG in DEXTROSE 5% 246 ML IV SCH ×2 (16:56→20:57)
--- NOTE | 2018-11-11 19:14 | RADRPT ---
Vent Rate: 98 bpm RR Interval: 614 msec AK Interval: 131 msec QRS Duration: 75 msec QT Interval: 420 msec QTC Interval: 536 msec P-R-T [place] [facility]: 81 - 82 - 75 degrees Sinus rhythm...normal P axis, V-rate 50- [address] elevation, consider inferior injury...ST >0.08mV, II III aVF Prolonged QT interval...QTc >500mS Electronically Signed By: Bishop Esteves
[2018-11-11] MEDS ORDERED: MAGNESIUM SULFATE 2 GM/50 ML 50 ML IVPB ONE (20:00)
[2018-11-11] MEDS ORDERED: SODIUM BICARBONATE (IV ADD) 150 MEQ in DEXTROSE 5% 850 ML IV SCH (21:00)
[2018-11-12] VITALS (85 sets, daily range): BP systolic 79–124; BP diastolic 41–94; PULSE 97–114; RESP 22–38
[2018-11-12] MEDS ORDERED: TPN 1,000 ML IV SCH
[2018-11-12] MEDS: PHENYLephrine 40 MG in DEXTROSE 5% 246 ML IV SCH ×4 (00:03→14:54)
[2018-11-12] MEDS ORDERED: FUROSEMIDE 40 MG INJ IV ONE (00:30)
[2018-11-12] MEDS: LEVALBUTEROL (HFA) 15 GM INHALER INH SCH ×3 (01:15→13:20)
[2018-11-12] MEDS: INSULIN ASPART [NOVOLOG] 3 ML PEN SC SCH ×3 (01:24→12:00)
[2018-11-12] MEDS: HEPARIN 5,000 UNIT/1 ML VIAL SC SCH ×2 (05:41→14:34)
--- NOTE | 2018-11-12 07:58 | PN ---
DATE: 11/12/2018 SUBJECTIVE: The patient is critically ill. The patient was on 3 pressors overnight on bicarbonate d rip. The patient is clinically declined on FIO2 100%. Yesterday the patient was made DNI/DNR by the patient's brother. No other events noted. No hemoptysis, hematemesis, hematochezia. OBJECTIVE: VITAL SIGNS: Blood pressure is 98/53, respirations 28, pulse 103, temperature 98.6. HEENT: Head is normocephalic. NECK: Supple. HEART: Regular rate. LUNGS: Show diminished breath sounds at the base. ABDOMEN: Soft, nontender to palpation without rebound or guarding. EXTREMITIES: Negative for clubbing, cyanosis, no edema. DERMATOLOGIC: No rashes. MUSCULOSKELETAL: No joint effusion. NEUROLOGIC: Patient is obtunded. MEDICATIONS: Have been reviewed. LABORATORY DATA: Has been reviewed. IMAGING STUDIES: Have been reviewed. MICROBIOLOGY: Has been reviewed. ABG: Has been reviewed. ASSESSMENT AND PLAN: 1. Septic shock. The patient is currently on multiple pressors, IV fluids, broad spectrum antibioti cs. Continue current treatment plan. Continue to trend lactic acid levels. Continue pressor suppor t, IV fluids and monitor. 2. Status post cardiac arrest. Etiology is unclear, possibly secondary to sepsis versus cardiac. C ontinue to monitor. Follow up with cardiology. 3. Ventilator-dependent respiratory failure. Vent settings and ABG was reviewed. Continue to monit or. 4. Oligoanuric acute kidney injury on top of chronic kidney disease. Etiology is secondary to acute tubular necrosis. The patient is anuric in the last 6 to 8 hours. The patient's family did not wis h to pursue dialysis. The patient is clinically unstable for dialysis. Will continue to monitor. 5. Metabolic acidosis secondary to acute kidney injury, lactic acidosis. Continue bicarbonate drip and follow up an ABG. 6. Anemia. Monitor hemoglobin and hematocrit levels. 7. Leukocytosis, likely secondary to sepsis. Continue to monitor. Continue infectious workup as st ated above. 8. History of gastrointestinal bleed. 9. Gastric duodenal artery vessels embolization status post exploratory laparotomy with enterolysis to control duodenal ulcer bleed. Currently, patient is . Continue to monitor. 10. Mid-incisional wound. Continue current wound care. Follow up with general surgery. 11. Acute encephalopathy on top of schizoaffective disorder. Continue to monitor. The patient may require a CT scan of the brain. The patient may also suffer an anoxic injury secondary to shock. 12. History of chronic obstructive pulmonary disease. 13. Transaminitis cholestasis secondary to shock liver. TPN, questionable obstructive etiology. Co ntinue to monitor. Follow up with GI and general surgery. 14. Deep venous thrombosis prophylaxis. Please note I spent over 35 minutes of critical care time with this patient. Palliative care consult will be placed. Dictated By: PREM SHOEMAKER/ANTHONY Conf#: [id number] DID#: [id number]
--- NOTE | 2018-11-12 09:36 | CONS ---
Assessment/Plan Assessment/Plan Assessment/Plan (Daily) Ventilator setting; assist control of 20, tidal volume 500, PEEP of 5, 90% FiO2. Chest x-ray from this morning is pending. Patient is currently on phenylephrine drip at 30 mics per minute, Levophed 5 mics per minute. Assessment and recommendations; 1. Patient with history of advanced dementia/encephalopathy and respiratory failure maintained on T-piece admitted after sustaining cardiac arrest event status post resuscitation. 2. Ongoing sepsis likely intra-abdominal source of infection. Patient with history of laparotomy with open abdominal wound. Patient also exhibiting ileus. Maintained on TPN. 3. Possibly aspiration pneumonia as well. With worsening hypoxemia. 4. History of schizoaffective disorder. 5. History of COPD. 6. Worsening renal function. Continue current supportive care. Prognosis appears extremely poor. Further recommendations once CBC as well as chest x-ray or pain. Patient's family possibly may opt for palliative care. 35 minutes of critical care time was spent evaluating patient. Consultation Date/Type/Reason Admit Date/Time Nov 11, 2018 at 03:22 Initial Consult Date 11/11/18 Type of Consult Pulmonary/critical care Patient is a 63-year-old male who was transferred to the hospital after he underwent cardiac arrest at [facility]. CPR was done with revival of vital signs. Patient apparently was maintained on T-piece but now is on invasive mechanical ventilation. By the time I saw him, patient is completely unresponsive and on ventilator. History is been obtained from medical records. Past medical history; 1. History of massive GI bleed status post 2 embolization procedures. 2. History of tracheostomy and PEG tube placement. 3. History of laparotomy with abdominal wound dehiscence. 4. Chronic renal insufficiency. 5. Chronic anemia. 6. COPD. 7. Schizoaffective disorder. Medications; reviewed. Patient is currently on Levophed 14 mics per minute. Ot her medications were reviewed as well. Allergies; none. Family history, social history, occupational history is unavailable. Review of system; unable to be obtained. General exam; elderly male, appears quite emaciated. On ventilator via tracheostomy. Noncommunicative. But awake. Currently in no distress. Requesting Provider: PREM COHEN DO Date/Time of Note DATE: 11/12/18 TIME: 09:33 24 HR Interval Summary Free Text/Dictation Patient's condition remains critical. Requiring combination pressor support for hypotension. General exam; elderly male, on ventilator via tracheostomy, unresponsive, currently in no distress. Exam/Review of Systems Exam Vitals Vital Signs Date Temp Pulse Resp B/P (MAP) Pulse Ox O2 O2 Flow FiO2 Time Delivery Rate 11/12/18 103 28 98/53 (68) 100 06:30 11/12/18 Mechanical 06:00 Ventilator 11/12/18 100 04:50 11/12/18 97.2 04:00 Intake and Output 11/11/18 11/11/18 11/12/18 1515:00 23:00 07:00 IntakeIntake Total 1659.999 ml 2765.71 ml 1436.16 ml OutputOutput Total 295 ml 10 ml 0 ml BalanceBalance 1364.999 ml 2755.71 ml 1436.16 ml Exam H EENT exam; supple neck, no JVD. No lymphadenopathy. Midline trachea. No thyromegaly. Tracheostomy placed. Patient is edentulous. No neck masses. Pupils are small bilaterally. Chest exam; diminished but clear breath sounds. S1-S2 audible, no murmurs. Regular rhythm. Abdomen exam; mildly distended. Midline dressing in place. There is a midline open wound. CONRAD drain in place. J-tube in place. Bowel sounds are absent. Extremity exam; no edema. 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 Results Result Diagram: 11/11/18 0414 11/12/18 0400 Results 24hrs Laboratory Tests Test 11/11/18 12:10 11/11/18 19:09 11/11/18 20:45 11/12/18 01:17 Bedside Glucose 104 113 162 Blood Gas Blood arterial Specimen Source Arterial Blood 11/11/2018 7:16:1 Date Drawn 0 PM Arterial Blood pH 7.248 *L (Temp corrected) Arterial Blood 29.3 L pCO2 (Temp correct) Arterial Blood 48.2 *L pO2 (Temp corrected) Arterial Blood 12.5 L HCO3 Arterial Blood -13.5 L Base Excess Arterial Blood 78.5 L Oxygen Saturation Chong Test ACCEPTAB Arterial Blood Right Radial Gas Puncture Site Arterial 0.3 Blood Carboxyhemo globin Arterial Blood 0.3 Methemoglobin Blood Gas A-a O2 131.3 H Differential Oxyhemoglobin 78.0 L Percent Blood Gas 37.0 Temperature Blood Gas 20.0 Respiration Rate Blood Gas Actual 32 Respiration Rate Blood Gas VENT - AC Modality FiO2 30.0 Blood Gas Tidal 500.0 Volume Blood Gas Low 5.0 PEEP Setting Blood Gas Hung. T RN Critical Value Read Back Blood Gas Miranda Chand [facility] Notified Whom Blood Gas 11/11/2018 7:28:5 Notified Time 8 PM Test 11/12/18 04:00 11/12/18 05:36 Sodium Level 142 Potassium Level 4.2 Chloride Level 114 H Carbon Dioxide 13 L Level Anion Gap 15 H Blood Urea 111 H Nitrogen Creatinine 4.62 H Est Glomerular 13 L Filtrat Rate mL/min Glucose Level 168 Calcium Level 9.5 Phosphorus Level 5.7 H Magnesium Level 2.3 Total Bilirubin 5.8 H Direct Bilirubin 4.70 H Indirect 1.1 Bilirubin Aspartate Amino 185 H Transf (AST/SGOT) Alanine 212 H Aminotransferase (ALT/SGPT) Alkaline 241 H Phosphatase Creatine Kinase 29 Creatine Kinase 11.2 Index Creatinine Kinase 3.24 H MB (Mass) Troponin I 0.097 Total Protein 6.0 #L Albumin 1.9 L Bedside Glucose 193 Medications Medication Current Medications Cefepime HCl 50 ml @ 100 mls/hr DAILY IVPB Last administered on 11/11/18 09:23; Admin Dose 100 MLS/HR; Start 11/11/18 at 09:00 Heparin Sodium (Porcine) (Heparin (5000 Units/1ml)) 5,000 unit Q8 SC Last administered on 11/12/18 05:41; Admin Dose 5,000 UNIT; Start 11/11/18 at 06:00 Insulin Aspart (Novolog Insulin Pen) NOVOLOG *MILD* ALGORI... Q6 SC Last administered on 11/12/18 05:41; Admin Dose 2 UNIT; Start 11/11/18 at 06:00 Levalbuterol (Xopenex Neb) 0.63 mg Q6H RESP THERAPY PRN HHN sob; Start 11/11/18 at 04:00 Miconazole Nitrate (Miconazole 2% Cr) 1 applic BID TOP Last administered on 11/11/18at 20:09; Admin Dose 1 APPLIC; Start 11/11/18 at 09:00 Levalbuterol (Xopenex Hfa) 4 puff Q6H RESP THERAPY INH Last administered on 11/12/18 08:34; Admin Dose 4 PUFF; Start 11/11/18 at 09:00 Vancomycin HCl (Vanco Iv Per Pharmacy) VANCOMYCIN PER PHARMACY PER PROTOCOL XX ; Start 11/11/18 at 09:00 Caspofungin 35 mg/ Sodium Chloride 250 ml @ 250 mls/hr Q24H IVPB ; Start 11/12/18 at 10:30 Miscellaneous Information 1 ea NOTE XX ; Start 11/11/18 at 09:30 Glucose (Glutose) 15 gm Q15M PRN PO DECREASED GLUCOSE; Start 11/11/18 at 09:30 Glucose (Glutose) 22.5 gm Q15M PRN PO DECREASED GLUCOSE; Start 11/11/18 at 09:30 Dextrose (D50w Syringe) 25 ml Q15M PRN IV DECREASED GLUCOSE; Start 11/11/18 at 09:30 Dextrose (D50w Syringe) 50 ml Q15M PRN IV DECREASED GLUCOSE; Start 11/11/18 at 09:30 Glucagon (Glucagen) 1 mg Q15M PRN IM DECREASED GLUCOSE; Start 11/11/18 at 09:30 Glucose (Glutose) 15 gm Q15M PRN BUCCAL DECREASED GLUCOSE; Start 11/11/18 at 09:30 Famotidine (Pepcid Iv) 20 mg BID IV Last administered on 11/11/18at 20:13; Admin Dose 20 MG; Start 11/11/18 at 10:00 Phenylephrine HCl 40 mg/Dextrose 250 ml @ 37.5 mls/hr TITRATE IV Last administered on 11/12/18at 03:04; Admin Dose 56.25 MLS/HR; Start 11/11/18 at 16:30 Norepinephrine 16 mg/Dextrose 250 ml @ 0.94 mls/hr TITRATE IV Last administ ered on 11/11/18at 17:03; Admin Dose 28.13 MLS/HR; Start 11/11/18 at 16:30 Vasopressin 60 unit/Dextrose 60 ml @ 0 mls/hr Q12H IV Last administered on 11/11/18at 20:15; Admin Dose 0.02 MLS/HR; Start 11/11/18 at 16:30 Morphine Sulfate (morphine) 1 mg Q4H PRN IV SEVERE PAIN LEVEL 7-10; Start 11/11/18 at 16:30 Sodium Bicarbonate 150 meq/Dextrose 1,000 ml @ 50 mls/hr Q20H IV Last administered on 11/11/18at 20:57; Admin Dose 50 MLS/HR; Start 11/11/18 at 21:00; Stop 11/12/18 at 16:59 Sodium Bicarbonate/ Dextrose 1,000 ml @ 50 mls/hr Q20H IV ; Start 11/12/18 at 17:00 BERENICE AREVALO Nov 12, 2018 09:36
[2018-11-12] MEDS: CEFEPIME 1GM/50 ML (PMX) 50 ML IVPB SCH (10:15)
[2018-11-12] MEDS: MICONAZOLE 2% 30 GM CR TOP SCH (10:16)
[2018-11-12] MEDS: BALSAM PERU/CASTOR OIL 60 GM TUBE TOP SCH (10:17)
[2018-11-12] MEDS ORDERED: CASPOFUNGIN 35 MG in SOD CHLORIDE 0.9% 250 ML IVPB SCH (10:30)
[2018-11-12] MEDS: FAMOTIDINE 20 MG INJ IV SCH (10:36)
--- NOTE | 2018-11-12 14:32 | CONS ---
Assessment/Plan Assessment/Plan Hospital Course (Demo Recall) Patient is on multiple pressors and vent support noncommunicative in no distress afebrile WBC 32 yesterday no labs today BUN 111 creatinine 4.62 total bilirubin 5.8 AST 185 ALT 212 alk phos 241 Microbiology: Blood cultures remain negative Chest x-ray on admission revealed slight increased left base atelectasis/infiltrates Indwelling: Trach PEG intra-abdominal drain Elias PICC line Antimicrobials: Cancidas cefepime vancomycin Physical examination chronically ill-appearing elderly man who is in no distress. Head atraumatic normocephalic neck is supple chest rise symmetrical breath sounds diminished bases heart: S1-S2 irregular abdomen distended mid abdominal drainage intact. Patient has left-sided CONRAD with a purulent drainage right-sided catheter attached to Elias bag extremities cyanotic and mottled Assessment: 1. Severe sepsis with shock 2. Multisystem organ failure 3. Status post cardiac arrest 4. Acute on chronic respiratory failure, possible aspiration pneumonia 5. History of exploratory laparotomy on October 09, 2018 evacuation of hematoma placement of duodenostomy tube 6. Acute kidney failure 7. History schizoaffective affective disorder Plan: Patient is doing poorly he is DNR status, we are going to change cefepime to meropenem, continue other antibiotics, consider CT of the abdomen Consultation Date/Type/Reason Admit Date/Time Nov 11, 2018 at 03:22 Initial Consult Date 11/11/18 Type of Consult id Requesting Provider: PREM COHEN DO Date/Time of Note DATE: 11/12/18 TIME: 14:32 Exam/Review of Systems Exam Vitals Vital Signs Date Temp Pulse Resp B/P (MAP) Pulse Ox O2 O2 Flow FiO2 Time Delivery Rate 11/12/18 111 12:00 11/12/18 28 98/53 (68) 100 06:30 11/12/18 Mechanical 06:00 Ventilator 11/12/18 100 04:50 11/12/18 97.2 04:00 Intake and Output 11/11/18 11/11/18 11/12/18 1414:59 22:59 06:59 IntakeIntake Total 1646.249 ml 2577.93 ml 1720.19 ml OutputOutput Total 325 ml 10 ml 0 ml BalanceBalance 1321.249 ml 2567.93 ml 1720.19 ml Results Result Diagram: 11/11/18 0414 11/12/18 0400 Results 24hrs Laboratory Tests Test 11/11/18 19:09 11/11/18 20:45 11/12/18 01:17 11/12/18 04:00 Blood Gas Blood arterial Specimen Source Arterial Blood 11/11/2018 7:16:1 Date Drawn 0 PM Arterial Blood pH 7.248 *L (Temp corrected) Arterial Blood 29.3 L pCO2 (Temp correct) Arterial Blood 48.2 *L pO2 (Temp corrected) Arterial Blood 12.5 L HCO3 Arterial Blood -13.5 L Base Excess Arterial Blood 78.5 L Oxygen Saturation Chong Test ACCEPTAB Arterial Blood Right Radial Gas Puncture Site Arterial 0.3 Blood Carboxyhemo globin Arterial Blood 0.3 Methemoglobin Blood Gas A-a O2 131.3 H Differential Oxyhemoglobin 78.0 L Percent Blood Gas 37.0 Temperature Blood Gas 20.0 Respiration Rate Blood Gas Actual 32 Respiration Rate Blood Gas VENT - AC Modality FiO2 30.0 Blood Gas Tidal 500.0 Volume Blood Gas Low 5.0 PEEP Setting Blood Gas Hung. T RN Critical Value Read Back Blood Gas Miranda Chand CARD HAND Notified Whom Blood Gas 11/11/2018 7:28:5 Notified Time 8 PM Bedside Glucose 113 162 Sodium Level 142 Potassium Level 4.2 Chloride Level 114 H Carbon Dioxide 13 L Level Anion Gap 15 H Blood Urea 111 H Nitrogen Creatinine 4.62 H Est Glomerular 13 L Filtrat Rate mL/min Glucose Level 168 Calcium Level 9.5 Phosphorus Level 5.7 H Magnesium Level 2.3 Total Bilirubin 5.8 H Direct Bilirubin 4.70 H Indirect 1.1 Bilirubin Aspartate Amino 185 H Transf (AST/SGOT) Alanine 212 H Aminotransferase (ALT/SGPT) Alkaline 241 H Phosphatase Creatine Kinase 29 Creatine Kinase 11.2 Index Creatinine Kinase 3.24 H MB (Mass) Troponin I 0.097 Total Protein 6.0 #L Albumin 1.9 L Test 11/12/18 05:36 Bedside Glucose 193 Medications Medication Current Medications Cefepime HCl 50 ml @ 100 mls/hr DAILY IVPB Last administered on 11/12/18at 10:15; Admin Dose 100 MLS/HR; Start 11/11/18 at 09:00 Heparin Sodium (Porcine) (Heparin (5000 Units/1ml)) 5,000 unit Q8 SC Last administered on 11/12/18at 05:41; Admin Dose 5,000 UNIT; Start 11/11/18 at 06:00 Insulin Aspart (Novolog Insulin Pen) NOVOLOG *MILD* ALGORI... Q6 SC Last administered on 11/12/18at 05:41; Admin Dose 2 UNIT; Start 11/11/18 at 06:00 Levalbuterol (Xopenex Neb) 0.63 mg Q6H RESP THERAPY PRN HHN sob; Start 11/11/18 at 04:00 Miconazole Nitrate (Miconazole 2% Cr) 1 applic BID TOP Last administered on 11/12/18at 10:16; Admin Dose 1 APPLIC; Start 11/11/18 at 09:00 Levalbuterol (Xopenex Hfa) 4 puff Q6H RESP THERAPY INH Last administered on 11/12/18at 13:20; Admin Dose 4 PUFF; Start 11/11/18 at 09:00 Vancomycin HCl (Vanco Iv Per Pharmacy) VANCOMYCIN PER PHARMACY PER PROTOCOL XX ; Start 11/11/18 at 09:00 Caspofungin 35 mg/ Sodium Chloride 250 ml @ 250 mls/hr Q24H IVPB Last administered on 11/12/18at 10:18; Admin Dose 250 MLS/HR; Start 11/12/18 at 10:30 Miscellaneous Information 1 ea NOTE XX ; Start 11/11/18 at 09:30 Glucose (Glutose) 15 gm Q15M PRN PO DECREASED GLUCOSE; Start 11/11/18 at 09:30 Glucose (Glutose) 22.5 gm Q15M PRN PO DECREASED GLUCOSE; Start 11/11/18 at 09:30 Dextrose (D50w Syringe) 25 ml Q15M PRN IV DECREASED GLUCOSE; Start 11/11/18 at 09:30 Dextrose (D50w Syringe) 50 ml Q15M PRN IV DECREASED GLUCOSE; Start 11/11/18 at 09:30 Glucagon (Glucagen) 1 mg Q15M PRN IM DECREASED GLUCOSE; Start 11/11/18 at 09:30 Glucose (Glutose) 15 gm Q15M PRN BUCCAL DECREASED GLUCOSE; Start 11/11/18 at 09:30 Famotidine (Pepcid Iv) 20 mg BID IV Last administered on 11/12/18at 10:36; Admin Dose 20 MG; Start 11/11/18 at 10:00 Phenylephrine HCl 40 mg/Dextrose 250 ml @ 37.5 mls/hr TITRATE IV Last administered on 11/12/18at 10:04; Admin Dose 18.75 MLS/HR; Start 11/11/18 at 16 :30 Norepinephrine 16 mg/Dextrose 250 ml @ 0.94 mls/hr TITRATE IV Last administered on 11/11/18at 17:03; Admin Dose 28.13 MLS/HR; Start 11/11/18 at 16:30 Vasopressin 60 unit/Dextrose 60 ml @ 0 mls/hr Q12H IV Last administered on 11/11/18at 20:15; Admin Dose 0.02 MLS/HR; Start 11/11/18 at 16:30 Morphine Sulfate (morphine) 1 mg Q4H PRN IV SEVERE PAIN LEVEL 7-10; Start 11/11/18 at 16:30 Sodium Bicarbonate 150 meq/Dextrose 1,000 ml @ 50 mls/hr Q20H IV Last administered on 11/11/18at 20:57; Admin Dose 50 MLS/HR; Start 11/11/18 at 21:00; Stop 11/12/18 at 16:59 Sodium Bicarbonate/ Dextrose 1,000 ml @ 50 mls/hr Q20H IV ; Start 11/12/18 at 17:00 XENIA BELLAMY NP Nov 12, 2018 14:32
[2018-11-12] MEDS ORDERED: MEROPENEM 500MG/50 ML (PMX) 50 ML IVPB SCH (15:00)
--- NOTE | 2018-11-12 15:24 | PN ---
Date/Time of Note Date/Time of Note DATE: 11/12/18 TIME: 14:55 Assessment/Plan Lines/Catheters IV Catheter Type (from Nrs): PICC Line Elias in Place (from Nrs): Yes Assessment/Plan Chief Complaint/Hosp Course 1. Cardiac arrest status post resuscitation, septic shock; currently on multiple pressor support -Supportive -Pressor support as needed -IV fluids -Antibiotics -pending CT -consider goals of care 2. Recent history of bleeding duodenal ulcer, status post exploratory laparotomy and duodenostomy -Obtain records from outside hospital -Maintain drains -Culture GIAN drainage -Local wound care 3. Hyperbilirubinemia, transaminitis: 2/2 shock liver versus obstruction versus other -GI follow-up 4. Respiratory failure currently on ventilator, pulmonary vascular congestions or infiltrates -Pulmonary toilet -Vent management -Pulmonary consult 5.MADONNA: -Limit nephrotoxic meds -Renally dose meds -Per renal 6. Hypochromic anemia: -Monitor and transfuse as needed 7. Metabolic acidosis -Supportive 8. Leukocytosis -As above 9. Dysphagia status post duodenostomy tube -Hold enteral feedings -TPN Thank you. Patient seen and examined in collaboration with Dr. Sunny Queen. Subjective 24 Hr Interval Summary In icu care on multiple pressor support. No Appears comfortable. Nonverbal indicators of pain not present. No labored breathing congested cough. Continues to have small gian output. Exam/Review of Systems Vital Signs Vitals Vital Signs Date Temp Pulse Resp B/P (MAP) Pulse Ox O2 O2 Flow FiO2 Time Delivery Rate 11/12/18 111 12:00 11/12/18 28 98/53 (68) 100 06:30 11/12/18 Mechanical 06:00 Ventilator 11/12/18 100 04:50 11/12/18 97.2 04:00 Intake and Output 11/11/18 11/11/18 11/12/18 1515:00 23:00 07:00 IntakeIntake Total 1659.999 ml 2765.71 ml 1436.16 ml OutputOutput Total 295 ml 10 ml 0 ml BalanceBalance 1364.999 ml 2755.71 ml 1436.16 ml Exam Free Text/Dictation Constitutional: alert, other (Withdraws from pain); No oriented Psych: confusion Head: normocephalic, atraumatic Eyes: nl conjunctiva, nl lids, icteric ENMT: nl external ears & nose, nl lips & teeth, nl nasal mucosa & septum Neck: supple, non-tender; No jvd Respiratory: normal air movement; No congested cough Cardiovascular: regular rate and rhythm, nl pulses Gastrointestinal: soft, tender, other (Open midline incision with slough; GIAN with purulent drainage; duodenostomy tube); No distended Genitourinary - Male: nl penis, nl scrotum Musculoskeletal: nl extremities to inspection Extremities: normal pulses; No edema Neurological: No nl mental status, No nl speech, No nl strength Skin: No rash or lesions Lymph: nl lymph nodes Results Result Diagram: 11/11/18 0414 11/12/18 0400 PIPO SRIVASTAVA NP Nov 12, 2018 15:05
--- NOTE | 2018-11-12 16:23 | CONS ---
Assessment/Plan Assessment/Plan Assessment/Plan (Daily) Hospital Course (Demo Recall) 63 yo male 1. Abnormal LFTs, multifactorial -sepsis, ischemic liver, cholastasis 2. Acute on chronic anemia -will monitor 3. S/P cardiac arrest 4. VDRF 5. Leukocytosis -sepsis, cardiac arrest 6. H/O GI bleed secondary gastroduodenal ulcer which was emoblized, enterolysis and duodenostomy tube. 7. Acute on chronic kidney disease Plan: Keep SBP greater than 100 [facility] and for active GI bleeding M[facility]itor LFTs PPI BID Continue TPN ICU supportive care Patient is now comfort measure Continue antibiotics as per ID Consultation Date/Type/Reason Admit Date/Time Nov 11, 2018 at 03:22 Initial Consult Date 11/11/18 Requesting Provider: PREM COHEN DO Date/Time of Note DATE: 11/12/18 TIME: 16:21 24 HR Interval Summary Subjective hx not possible: pt critical Exam/Review of Systems Exam Vitals Vital Signs Date Temp Pulse Resp B/P (MAP) Pulse Ox O2 O2 Flow FiO2 Time Delivery Rate 11/12/18 111 12:00 11/12/18 28 98/53 (68) 100 06:30 11/12/18 Mechanical 06:00 Ventilator 11/12/18 100 04:50 11/12/18 97.2 04:00 Intake and Output 11/11/18 11/11/18 11/12/18 1515:00 23:00 07:00 IntakeIntake Total 1659.999 ml 2765.71 ml 1436.16 ml OutputOutput Total 295 ml 10 ml 0 ml BalanceBalance 1364.999 ml 2755.71 ml 1436.16 ml Constitutional: non-verbal Neck: supple, non-tender Respiratory: diminished breath sounds Cardiovascular: regular rate and rhythm, nl pulses Gastrointestinal: soft, nl liver, spleen, non-tender Extremities: normal pulses Neurological: lethargic Results Result Diagram: 11/11/18 0414 11/12/18 0400 Results 24hrs Laboratory Tests Test 11/11/18 19:09 11/11/18 20:45 11/12/18 01:17 11/12/18 04:00 Blood Gas Blood arterial Specimen Source Arterial Blood 11/11/2018 7:16:1 Date Drawn 0 PM Arterial Blood pH 7.248 *L (Temp corrected) Arterial Blood 29.3 L pCO2 (Temp correct) Arterial Blood 48.2 *L pO2 (Temp corrected) Arterial Blood 12.5 L HCO3 Arterial Blood -13.5 L Base Excess Arterial Blood 78.5 L Oxygen Saturation Chong Test ACCEPTAB Arterial Blood Right Radial Gas Puncture Site Arterial 0.3 Blood Carboxyhemo globin Arterial Blood 0.3 Methemoglobin Blood Gas A-a O2 131.3 H Differential Oxyhemoglobin 78.0 L Percent Blood Gas 37.0 Temperature Blood Gas 20.0 Respiration Rate Blood Gas Actual 32 Respiration Rate Blood Gas VENT - AC Modality FiO2 30.0 Blood Gas Tidal 500.0 Volume Blood Gas Low 5.0 PEEP Setting Blood Gas Hung. T RN Critical Value Read Back Blood Gas Miranda ChandP Notified Whom Blood Gas 11/11/2018 7:28:5 Notified Time 8 PM Bedside Glucose 113 162 Sodium Level 142 Potassium Level 4.2 Chloride Level 114 H Carbon Dioxide 13 L Level Anion Gap 15 H Blood Urea 111 H Nitrogen Creatinine 4.62 H Est Glomerular 13 L Filtrat Rate mL/min Glucose Level 168 Calcium Level 9.5 Phosphorus Level 5.7 H Magnesium Level 2.3 Total Bilirubin 5.8 H Direct Bilirubin 4.70 H Indirect 1.1 Bilirubin Aspartate Amino 185 H Transf (AST/SGOT) Alanine 212 H Aminotransferase (ALT/SGPT) Alkaline 241 H Phosphatase Creatine Kinase 29 Creatine Kinase 11.2 Index Creatinine Kinase 3.24 H MB (Mass) Troponin I 0.097 Total Protein 6.0 #L Albumin 1.9 L Test 11/12/18 05:36 11/12/18 14:40 Bedside Glucose 193 123 Medications Medication Current Medications Heparin Sodium (Porcine) (Heparin (5000 Units/1ml)) 5,000 unit Q8 SC Last administered on 11/12/18at 14:34; Admin Dose 5,000 UNIT; Start 11/11/18 at 06:00 Insulin Aspart (Novolog Insulin Pen) NOVOLOG *MILD* ALGORI... Q6 SC Last administered on 11/12/18at 05:41; Admin Dose 2 UNIT; Start 11/11/18 at 06:00 Levalbuterol (Xopenex Neb) 0.63 mg Q6H RESP THERAPY PRN HHN sob; Start 11/11/18 at 04:00 Miconazole Nitrate (Miconazole 2% Cr) 1 applic BID TOP Last administered on 11/12/18at 10:16; Admin Dose 1 APPLIC; Start 11/11/18 at 09:00 Levalbuterol (Xopenex Hfa) 4 puff Q6H RESP THERAPY INH Last administered on 11/12/18at 13:20; Admin Dose 4 PUFF; Start 11/11/18 at 09:00 Vancomycin HCl (Vanco Iv Per Pharmacy) VANCOMYCIN PER PHARMACY PER PROTOCOL XX ; Start 11/11/18 at 09:00 Caspofungin 35 mg/ Sodium Chloride 250 ml @ 250 mls/hr Q24H IVPB Last administered on 11/12/18at 10:18; Admin Dose 250 MLS/HR; Start 11/12/18 at 10:30 Miscellaneous Information 1 ea NOTE XX ; Start 11/11/18 at 09:30 Glucose (Glutose) 15 gm Q15M PRN PO DECREASED GLUCOSE; Start 11/11/18 at 09:30 Glucose (Glutose) 22.5 gm Q15M PRN PO DECREASED GLUCOSE; Start 11/11/18 at 09:30 Dextrose (D50w Syringe) 25 ml Q15M PRN IV DECREASED GLUCOSE; Start 11/11/18 at 09:30 Dextrose (D50w Syringe) 50 ml Q15M PRN IV DECREASED GLUCOSE; Start 11/11/18 at 09:30 Glucagon (Glucagen) 1 mg Q15M PRN IM DECREASED GLUCOSE; Start 11/11/18 at 09:30 Glucose (Glutose) 15 gm Q15M PRN BUCCAL DECREASED GLUCOSE; Start 11/11/18 at 09 :30 Famotidine (Pepcid Iv) 20 mg BID IV Last administered on 11/12/18at 10:36; Admin Dose 20 MG; Start 11/11/18 at 10:00 Phenylephrine HCl 40 mg/Dextrose 250 ml @ 37.5 mls/hr TITRATE IV Last adminis tered on 11/12/18at 14:54; Admin Dose 11.25 MLS/HR; Start 11/11/18 at 16:30 Norepinephrine 16 mg/Dextrose 250 ml @ 0.94 mls/hr TITRATE IV Last administered on 11/11/18at 17:03; Admin Dose 28.13 MLS/HR; Start 11/11/18 at 16:30 Vasopressin 60 unit/Dextrose 60 ml @ 0 mls/hr Q12H IV Last administered on 11/11/18at 20:15; Admin Dose 0.02 MLS/HR; Start 11/11/18 at 16:30 Morphine Sulfate (morphine) 1 mg Q4H PRN IV SEVERE PAIN LEVEL 7-10; Start 11/11/18 at 16:30 Sodium Bicarbonate 150 meq/Dextrose 1,000 ml @ 50 mls/hr Q20H IV Last administered on 11/11/18at 20:57; Admin Dose 50 MLS/HR; Start 11/11/18 at 21:00; Stop 11/12/18 at 16:59 Sodium Bicarbonate/ Dextrose 1,000 ml @ 50 mls/hr Q20H IV Last administered on 11/12/18at 14:43; Admin Dose 50 MLS/HR; Start 11/12/18 at 17:00 Meropenem/Sodium Chloride 50 ml @ 100 mls/hr Q12 IVPB Last administered on 11/12/18at 14:43; Admin Dose 100 MLS/HR; Start 11/12/18 at 15:00 SOTERO DORANTSE MD Nov 12, 2018 16:23
[2018-11-12] MEDS ORDERED: SODIUM BICARBONATE IN D5W 1,000 ML IV SCH (17:00)
--- NOTE | 2018-11-12 17:16 | CONS ---
Consult Date/Type/Reason Admit Date/Time Nov 11, 2018 at 03:22 Initial Consult Date 11/11/18 Type of Consultation: cv Requesting Provider: PREM COHEN DO Date/Time of Note DATE: 11/12/18 TIME: 17:11 Subjective cardiology follow up note s. DW/ staff and tele reviewed pt remains hypotensive and tachycardic on pressors and on vent nonverbal he remains in sinus rhythm O: General: Looking team gentleman status post tracheostomy on the vent HEENT: NC/AT. pupils are equal. NECK: Status post tracheostomy. no stridor. CV: RRR. systolic murmur; no gallop or rubs. PULM: no wheezing + rhonchi. GI: Status post surgery with [address]. Extremity: trace B/L LE edema. no clubbing. neuro: Opens his eyes and moves to painful stimuli. Does not able to answer my question though. Psych: calm rectal: deferred : normal male. Per review of the old chart abdominal CT done 11/06/2018 showed: Status post recent midline laparotomy. Postsurgical changes anterior wall body stomach. Question mass proximal body stomach. Feeding gastrostomy tube with tip in duodenum as above. Surgical drain tip in gallbladder fossa. No abscess or hematoma seen. Left renal cyst. Nonvisualization appendix. Bibasilar linear fibrosis versus plate-like atelectasis. Objective Vitals Vital Signs Date Temp Pulse Resp B/P (MAP) Pulse Ox O2 O2 Flow FiO2 Time Delivery Rate 11/12/18 107 16:00 11/12/18 28 98/53 (68) 100 06:30 11/12/18 Mechanical 06:00 Ventilator 11/12/18 100 04:50 11/12/18 97.2 04:00 Intake and Output 11/11/18 11/11/18 11/12/18 1515:00 23:00 07:00 IntakeIntake Total 1659.999 ml 2765.71 ml 1436.16 ml OutputOutput Total 295 ml 10 ml 0 ml BalanceBalance 1364.999 ml 2755.71 ml 1436.16 ml Results/Medications Result Diagram: 11/11/18 0414 11/12/18 0400 Results 24 hrs Laboratory Tests Test 11/11/18 19:09 11/11/18 20:45 11/12/18 01:17 11/12/18 04:00 Blood Gas Blood arterial Specimen Source Arterial Blood 11/11/2018 7:16:1 Date Drawn 0 PM Arterial Blood pH 7.248 *L (Temp corrected) Arterial Blood 29.3 L pCO2 (Temp correct) Arterial Blood 48.2 *L pO2 (Temp corrected) Arterial Blood 12.5 L HCO3 Arterial Blood -13.5 L Base Excess Arterial Blood 78.5 L Oxygen Saturation Chong Test ACCEPTAB Arterial Blood Right Radial Gas Puncture Site Arterial 0.3 Blood Carboxyhemo globin Arterial Blood 0.3 Methemoglobin Blood Gas A-a O2 131.3 H Differential Oxyhemoglobin 78.0 L Percent Blood Gas 37.0 Temperature Blood Gas 20.0 Respiration Rate Blood Gas Actual 32 Respiration Rate Blood Gas VENT - AC Modality FiO2 30.0 Blood Gas Tidal 500.0 Volume Blood Gas Low 5.0 PEEP Setting Blood Gas Hung. T RN Critical Value Read Back Blood Gas Miranda Chand CHIEF GREEN OFFICER Notified Whom Blood Gas 11/11/2018 7:28:5 Notified Time 8 PM Bedside Glucose 113 162 Sodium Level 142 Potassium Level 4.2 Chloride Level 114 H Carbon Dioxide 13 L Level Anion Gap 15 H Blood Urea 111 H Nitrogen Creatinine 4.62 H Est Glomerular 13 L Filtrat Rate mL/min Glucose Level 168 Calcium Level 9.5 Phosphorus Level 5.7 H Magnesium Level 2.3 Total Bilirubin 5.8 H Direct Bilirubin 4.70 H Indirect 1.1 Bilirubin Aspartate Amino 185 H Transf (AST/SGOT) Alanine 212 H Aminotransferase (ALT/SGPT) Alkaline 241 H Phosphatase Creatine Kinase 29 Creatine Kinase 11.2 Index Creatinine Kinase 3.24 H MB (Mass) Troponin I 0.097 Total Protein 6.0 #L Albumin 1.9 L Test 11/12/18 05:36 11/12/18 14:40 Bedside Glucose 193 123 Medications Current Medications Heparin Sodium (Porcine) (Heparin (5000 Units/1ml)) 5,000 unit Q8 SC Last administered on 11/12/18at 14:34; Admin Dose 5,000 UNIT; Start 11/11/18 at 06:00 Insulin Aspart (Novolog Insulin Pen) NOVOLOG *MILD* ALGORI... Q6 SC Last administered on 11/12/18at 05:41; Admin Dose 2 UNIT; Start 11/11/18 at 06:00 Levalbuterol (Xopenex Neb) 0.63 mg Q6H RESP THERAPY PRN HHN sob; Start 11/11/18 at 04:00 Miconazole Nitrate (Miconazole 2% Cr) 1 applic BID TOP Last administered on 11/12/18at 10:16; Admin Dose 1 APPLIC; Start 11/11/18 at 09:00 Levalbuterol (Xopenex Hfa) 4 puff Q6H RESP THERAPY INH Last administered on 11/12/18at 13:20; Admin Dose 4 PUFF; Start 11/11/18 at 09:00 Vancomycin HCl (Vanco Iv Per Pharmacy) VANCOMYCIN PER PHARMACY PER PROTOCOL XX ; Start 11/11/18 at 09:00 Caspofungin 35 mg/ Sodium Chloride 250 ml @ 250 mls/hr Q24H IVPB Last administered on 11/12/18at 10:18; Admin Dose 250 MLS/HR; Start 11/12/18 at 10:30 Miscellaneous Information 1 ea NOTE XX ; Start 11/11/18 at 09:30 Glucose (Glutose) 15 gm Q15M PRN PO DECREASED GLUCOSE; Start 11/11/18 at 09:30 Glucose (Glutose) 22.5 gm Q15M PRN PO DECREASED GLUCOSE; Start 11/11/18 at 09:30 Dextrose (D50w Syringe) 25 ml Q15M PRN IV DECREASED GLUCOSE; Start 11/11/18 at 09:30 Dextrose (D50w Syringe) 50 ml Q15M PRN IV DECREASED GLUCOSE; Start 11/11/18 at 09:30 Glucagon (Glucagen) 1 mg Q15M PRN IM DECREASED GLUCOSE; Start 11/11/18 at 09:30 Glucose (Glutose) 15 gm Q15M PRN BUCCAL DECREASED GLUCOSE; Start 11/11/18 at 09:30 Famotidine (Pepcid Iv) 20 mg BID IV Last administered on 11/12/18at 10:36; Admin Dose 20 MG; Start 11/11/18 at 10:00 Phenylephrine HCl 40 mg/Dextrose 250 ml @ 37.5 mls/hr TITRATE IV Last administered on 11/12/18at 14:54; Admin Dose 11.25 MLS/HR; Start 11/11/18 at 16:30 Norepinephrine 16 mg/Dextrose 250 ml @ 0.94 mls/hr TITRATE IV Last administered on 7/11/19at 17:03; Admin Dose 28.13 MLS/HR; Start 11/11/18 at 16:30 Vasopressin 60 unit/Dextrose 60 ml @ 0 mls/hr Q12H IV Last administered on 11/11/18 20:15; Admin Dose 0.02 MLS/HR; Start 11/11/18 at 16:30 Morphine Sulfate (morphine) 1 mg Q4H PRN IV SEVERE PAIN LEVEL 7-10; Start 11/11/18 at 16:30 Sodium Bicarbonate/ Dextrose 1,000 ml @ 50 mls/hr Q20H IV Last administered on 11/12/18 14:43; Admin Dose 50 MLS/HR; Start 11/12/18 at 17:00 Meropenem/Sodium Chloride 50 ml @ 100 mls/hr Q12 IVPB Last administered on 11/12/18 14:43; Admin Dose 100 MLS/HR; Start 11/12/18 at 15:00 Assessment/Plan Hospital Course (Demo Recall) 1. Cardiopulmonary arrest: Appears to be most likely respiratory related 2. Shock probably septic 3. History of respiratory failure with tracheostomy vent dependent 4. Renal failure probably acute on chronic 5. Jaundice 6. History of GI bleed 7. Encephalopathy 8. Anemia 9. History of likely COPD 10. History of fungemia 11. Malnutrition and dysphagia 12. Severe metabolic acidosis Recommendation: Continue with supportive care including ventilatory support for now Levophed to be continued and titrated as needed for now ECHO shows normal EF Antibiotic management as per internal medicine and most likely ID consultations. GI prophylaxis/treatment as per GI salesforce consultant and internal medicine Continue with ICU care for now. . code statues is DNR for now\ FAMILY is considering palliative care. Thank you for this referral. We will continue to follow along with you as needed GHAZALA SNYDER MD [facility] GHAZALA SNYDER MD Nov 12, 2018 17:16
[2018-11-12] MEDS ORDERED: ATROPINE 1% 5 ML OPH SL PRN (19:30)
[2018-11-12] MEDS ORDERED: SCOPOLAMINE 1.5 MG PATCH TRANSDERM SCH (19:30)
[2018-11-12] MEDS ORDERED: LORAZEPAM 2 MG INJ IV PRN (19:30)
[2018-11-12] MEDS ORDERED: morphine (DRIP) 100 MG/100 ML 100 ML IV SCH (19:30)
[2018-11-13] VITALS: PULSE 0
== END 2018-11-12 23:25 | disposition expired | DRG 871 ==
LOC: ICU 03:22
PROVIDERS: ADMIT Internal Medicine; ATTEND Internal Medicine
PROC: 5A1945Z Respiratory Ventilation, 24-96 Consecutive Hours (ICD-10-PCS; principal; 2018-11-11)
DX: A41.9 Sepsis, unspecified organism (principal); R65.21 Severe sepsis with septic shock; G92 Toxic encephalopathy; K72.00 Acute and subacute hepatic failure without coma; K83.1 Obstruction of bile duct; J69.0 Pneumonitis due to inhalation of food and vomit; J96.20 Acute and chronic respiratory failure, unspecified whether with hypoxia or hypercapnia; N17.9 Acute kidney failure, unspecified; E87.2 Acidosis; G93.1 Anoxic brain damage, not elsewhere classified; E46 Unspecified protein-calorie malnutrition; Z68.1 Body mass index [BMI] 19.9 or less, adult; R17 Unspecified jaundice; K56.7 Ileus, unspecified; I46.9 Cardiac arrest, cause unspecified; F25.9 Schizoaffective disorder, unspecified; J44.9 Chronic obstructive pulmonary disease, unspecified; D64.9 Anemia, unspecified; I10 Essential (primary) hypertension; R13.10 Dysphagia, unspecified; Z93.0 Tracheostomy status; I12.9 Hypertensive chronic kidney disease with stage 1 through stage 4 chronic kidney disease, or unspecified chronic kidney disease; N18.9 Chronic kidney disease, unspecified
CPT/HCPCS: 36600; 71045; 80048; 80053; 80076; 82550; 82553; 82803; 82962; 83605; 83735; 84100; 84134; 84145; 84478; 84484; 85025; 85730; 87070; 87081; 89220; 93005; 93306; 94002; 94003; 94640; J0692; J1644; J1815; J1940; J2185; J2270; J2370; J3370; J3475; J7030; J7050; J7070